=== PATIENT | female | born 1960 | race Caucasian/White ===

== ENCOUNTER 2024-01-09 19:42 | Inpatient (IN) | payer MEDICARE, MEDICAID, SELFPAY ==
[2024-01-09 19:43] VITALS: BP 123/75; PULSE 65; RESP 20; TEMP 36.6; O2SAT 95; BMI 53.1
--- NOTE | 2024-01-09 19:45 | XRR_ITS ---
PROCEDURE INFORMATION: Exam: XR Chest Exam date and time: 01/09/2024 8:00 PM Age: 63 years old Clinical indication: Shortness of breath TECHNIQUE: Imaging protocol: Radiologic exam of the chest. Views: 1 view. COMPARISON: No relevant prior studies available. FINDINGS: Lungs: Pulmonary venous hypertension without edema. Left lower lobe infiltrate. Pleural spaces: Unremarkable. No pleural effusion. No pneumothorax. Heart/Mediastinum: Unremarkable. No cardiomegaly. Bones/joints: Unremarkable. XR/XR chest 1V portable [id number] IMPRESSION: 1. Pulmonary venous hypertension without edema. 2. Left lower lobe infiltrate.
--- NOTE | 2024-01-09 19:46 | USR_ITS ---
PROCEDURE INFORMATION: Exam: US Duplex Lower Extremity Veins, Bilateral Exam date and time: 01/09/2024 8:42 PM Age: 63 years old Clinical indication: Leg, lower; Patient HX: Patient presents with pain and swelling bilateral lower extremities, which are covered with numerous, red, quarter-sized spots. No history of dvt per patient. ; Additional info: Bilateral lower extremity pain and swelling. TECHNIQUE: Imaging protocol: Real-time duplex ultrasound of the bilateral extremities with 2-D hernandes scale, color Doppler flow and spectral waveform analysis including responses to compression and other maneuvers (when performed) with image documentation. Complete exam focused on the lower extremity veins. COMPARISON: No relevant prior studies available. FINDINGS: Right deep veins: Unremarkable. The common femoral, femoral, proximal profunda femoral and popliteal veins are patent without thrombus. Normal Doppler waveforms. Normal compressibility and/or augmentation response. Left deep veins: Unremarkable. The common femoral, femoral, proximal profunda femoral and popliteal veins are patent without thrombus. Normal Doppler waveforms. Normal compressibility and/or augmentation response. Superficial veins: Greater saphenous veins at the saphenofemoral junctions are patent bilaterally without thrombus. Soft tissues: Unremarkable. US/[place] [id number] IMPRESSION: No evidence of deep vein thrombosis.
--- NOTE | 2024-01-09 19:46 | ECG_ITS ---
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 Measurements Intervals [place] Rate: 63 P: 49 IA: 175 QRS: 6 QRSD: 98 T: 46 QT: 429 QTc: 440 Interpretive Statements SINUS RHYTHM POSSIBLE ANTERIOR MYOCARDIAL INFARCTION , OF INDETERMINATE AGE [30 ms Q WAVE IN V3/V4, OR R < 0.2 mV IN V4] No previous ECG available for comparison Electronically Signed On 01-10-2024 15:45:14 CDT by Jose Castro M.D. [email or web address]
[2024-01-09] MEDS: FUROsemide 10 mg/mL SDV 10mL 80 MG IVP (19:58)
[2024-01-09 20:04] LABS: Basophils # 0.1 10^3/uL (0.0-0.1); Basophils % 0.9 %; Eosinophils # 0.2 10^3/uL (0.0-0.8); Eosinophils % 4.2 %; Lymphocytes # 1.4 10^3/uL (0.8-4.8); Lymphocytes % 26.1 %; Mean Corpuscular HGB Conc 31.4 g/dL (30-55); Mean Corpuscular Hemoglobin 30.9 pg (27-33); Mean Corpuscular Volume 98.4 fl (85-98); Mean Platelet Volume 9.6 fL (7.4-10.4); Monocytes # 0.8 10^3/uL (0.2-0.9); Monocytes % 13.8 %; Neutrophils # 2.99 10^3/uL (1.8-7.7); Neutrophils % 54.8 %; Nucleated Red Blood Cells % 0 %; Platelet Count 228 10^3/cmm (157-399); Red Blood Count 3.76 10^6/uL (3.85-5.65); Red Cell Distribution Width 15.1 % (12.1-15.1); White Blood Count 5.45 10^3/uL (3.29-11.43)
--- NOTE | 2024-01-09 20:07 | ED_ITS ---
HPI - Extremity Problem 2 General: Chief complaint: Extremity Problem,Nontraumatic Stated complaint: leg pain Time Seen by Provider: 01/09/24 19:44 History of Present Illness: 63-year-old female with a history of obe sity, chronic hypoxemic respiratory failure on 3 L nasal cannula at all times, pulmonary hypertension, possible congestive heart failure, hypothyroidism and hypertension who presents to the emergency room with worsening swelling. She says she has not been able to take her Lasix in several days because she has not really been able to get up and get around. She has had increased swelling in her legs. She called her doctor who told her to go to the emergency room because she might need an ultrasound to rule out DVT. She denies any orthopnea or worsening shortness of breath. No chest pain. No abdominal pain. No nausea or vomiting. No fevers. Review of Systems 2 Narrative: Constitutional symptoms: Negative except as documented in HPI. Skin symptoms: Negative except as documented in HPI. Eye symptoms: Negative except as documented in HPI. ENMT symptoms: Negative except as documented in HPI. Respiratory symptoms: Negative except as documented in HPI. Cardiovascular symptoms: Negative except as documented in HPI. Gastrointestinal symptoms: Negative except as documented in HPI. Genitourinary symptoms: Negative except as documented in HPI. Musculoskeletal symptoms: Negative except as documented in HPI. Neurologic symptoms: Negative except as documented in HPI. Psychiatric symptoms: Negative except as documented in HPI. Endocrine symptoms: Negative except as documented in HPI. Physical Exam 2 Narrative: EXAM NARRATIVE: General: Alert, no acute distress. Skin: Warm, dry. Head: Normocephalic, atraumatic. Neck: Supple, trachea midline. Eye: Extraocular movements are intact. Ears, nose, mouth and throat: mucosa moist. Cardiovascular: Regular, Normal peripheral perfusion. Respiratory: Lungs are clear to auscultation, respirations are non-labored, breath sounds are equal, Symmetrical chest wall expansion. Gastrointestinal: Soft, Nontender, Non distended, Normal bowel sounds. Musculoskeletal: Normal ROM, no deformity. Patient has seemed to have some swelling to her legs. She is also very obese it was difficult to examine. Neurological: Alert and oriented, No focal neurological deficit observed. Psychiatric: Cooperative, appropriate mood & affect. Course 2 Vital Signs: Vital signs: Vital Signs Temperature 97.9 F 01/09/24 19:43 Pulse Rate 60 01/09/24 22:11 Respiratory Rate 20 H 01/09/24 19:43 Blood Pressure 139/69 01/09/24 22:11 Pulse Oximetry 98 01/09/24 22:11 Oxygen Delivery Me thod Nasal Cannula 01/09/24 22:11 Oxygen Flow Rate 3 01/09/24 19:43 MDM - Extremity (Nontraumatic) Medical Decision Making Medical decision making: Differential diagnosis including but not limited to and based on the above HPI, review of systems and physical exam: We will order an ultrasound to rule out DVT. Basic lab work and proBNP are being ordered as well. Chest x-ray. Rule out congestive heart failure. Orders placed to evaluate differential diagnosis based on the above differential, HPI and physical exam Chest x-ray: Cardiomegaly, some pulmonary congestion that might indicate some early heart failure. No obvious focal infiltrates. This was reviewed and interpreted by myself the ER physician. EKG: Time 1948 rate 63. Normal sinus rhythm, No ST-T changes, no ectopy, normal [place] & QRS intervals, This was reviewed and interpreted by myself the ER physician at 1953 Ultrasound of the lower extremities bilaterally: This was read by the radiologist. There is no DVT or other abnormalities. Lab Review: Laboratory results were reviewed and interpreted by myself the emergency room physician. Patient has a white count of 5.45. Hemoglobin is 11.6. BUN and creatinine are 11 and 0.9. Potassium is a little bit low at 3.3. I reviewed the patient's medical record. Reexamination: Patient remained stable. I talked with her and her family. They feel that she is too weak to even get up to make a phone call to get help today. I think her multiple problems including anasarca, heart failure and a urinary tract infection should meet requirements for admission. They helped have physical therapy consult and possible assisted rehab. No increased work of breathing at this time. No altered mental status. I reevaluated her skin. She has breakdown under her breasts and in her groin area. She also has had circular lesions on her arms and legs for 5 to 6 months that she does not know what the cause is. Assessment and plan: Weakness/debility Urinary tract infection Congestive heart failure Anasarca Candidal skin infection/dermatitis under the breasts and in the groin. Hypokalemia Chronic hypoxemic respiratory failure -80 mg IV Lasix for anasarca/congestive heart failure. -40 mill equivalents p.o. potassium for hypokalemia that will be exacerbated with Lasix. -She has a skin rash/dermatitis that looks candidal to me. She has failed topical treatment. I am giving her 200 mg of IV fluconazole here in the emergency room. -Patient has extensive antibiotic allergies. She says she has tolerated Rocephin in the past. Already given her meropenem as she does have a Keflex allergy. -Patient remained stable on her 3 L nasal cannula. No increased oxygen requirements. -I discussed the patient with the hospitalist on-call who is admitting the patient. - Discussed findings and plan with patient. Answered any questions. - All laboratory values were reviewed and interpreted personally by myself, the ER physician - All imaging was reviewed and interpreted personally by myself, the ER physician. - Evaluation and treatment of this problem were appropriate in the emergency setting Lab Data 01/09/24 19:55 01/09/24 19:55 Radiology Impressions Chest X-Ray 01/09/24 19:45 IMPRESSION: 1. Pulmonary venous hypertension without edema. 2. Left lower lobe infiltrate. Venous Duplex 01/09/24 19:46 IMPRESSION: No evidence of deep vein thrombosis. Laboratory Results WBC 5.45 10^3/uL (3.29-11.43) 01/09/24 19:55 RBC 3.76 10^6/uL (3.85-5.65) L 01/09/24 19:55 Hgb 11.60 g/dL (11.27-16.99) 01/09/24 19:55 Hct 37.0 % (36-47) 01/09/24 19:55 MCV 98.4 fl (85-98) H 01/09/24 19:55 MCH 30.9 pg (27-33) 01/09/24 19:55 MCHC 31.4 g/dL (30-55) 01/09/24 19:55 RDW 15.1 % (12.1-15.1) 01/09/24 19:55 Plt Count 228 10^3/cmm (157-399) 01/09/24 19:55 MPV 9.6 fL (7.4-10.4) 01/09/24 19:55 Neut % (Auto) 54.8 % 01/09/24 19:55 Lymph % (Auto) 26.1 % 01/09/24 19:55 [place] % (Auto) 13.8 % 01/09/24 19:55 Eos % (Auto) 4.2 % 01/09/24 19:55 Baso % (Auto) 0.9 % 01/09/24 19:55 Neut # (Auto) 2.99 10^3/uL (1.8-7.7) 01/09/24 19:55 Lymph # (Auto) 1.4 10^3/uL (0.8-4.8) 01/09/24 19:55 [place] # (Auto) 0.8 10^3/uL (0.2-0.9) 01/09/24 19:55 Eos # (Auto) 0.2 10^3/uL (0.0-0.8) 01/09/24 19:55 Baso # (Auto) 0.1 10^3/uL (0.0-0.1) 01/09/24 19:55 Nucleated RBC % (auto) 0 % 01/09/24 19:55 Nucleated RBCs # 0.0 /100WBC 01/09/24 19:55 Sodium 141 mmol/L (136-145) 01/09/24 19:55 Potassium 3.3 mmol/L (3.5-5.1) L 01/09/24 19:55 Chloride 100 mmol/L (98-107) 01/09/24 19:55 Carbon Dioxide 35 mmol/L (22-29) H 01/09/24 19:55 Anion Gap 9.3 (5-19) 01/09/24 19:55 BUN 11 mg/dL (8-23) 01/09/24 19:55 Creatinine 0.9 mg/dL (0.5-0.9) 01/09/24 19:55 GFR Calculation 63.4 mL/min (90-130) L 01/09/24 19:55 Glucose 109 mg/dL (65-115) 01/09/24 19:55 Calculated Osmolality 292 mOsm/kg (285-295) 01/09/24 19:55 Lactic Acid 1.5 mmol/L (0.5-2.2) 01/09/24 19:55 Calcium 8.5 mg/dL (8.5-10.5) 01/09/24 19:55 Total Bilirubin 0.2 mg/dL (0.15-1.2) 01/09/24 19:55 AST 21 U/L (0-32) 01/09/24 19:55 ALT 10 U/L (0-33) 01/09/24 19:55 Alkaline Phosphatase 73 U/L (35-105) 01/09/24 19:55 Troponin T Baseline 69 ng/L (0-10) H 01/09/24 19:55 Troponin T 120 Minute 66.93 ng/L (0-10) H 01/09/24 21:32 Delta Troponin T -2.07 ABS# (0-10) L 01/09/24 21:32 C-Reactive Protein 18.0 mg/L (0.0-4.9) H 01/09/24 19:55 NT-Pro-B Natriuret Pep 297 pg/mL (0-125) H 01/09/24 19:55 Total Protein 6.2 g/dL (6.6-8.7) L 01/09/24 19:55 Albumin 3.2 g/dL (3.5-5.2) L 01/09/24 19:55 Globulin 3.0 g/dL (1.3-4.6) 01/09/24 19:55 Urine Color Yellow (Yellow) 01/09/24 20:23 Urine Appearance Cloudy (CLEAR) A 01/09/24 20:23 Urine pH 6.5 (5-7) 01/09/24 20:23 Ur Specific [place] 1.010 (1.005-1.030) 01/09/24 20:23 Urine Protein Neg (Negative) 01/09/24 20:23 Urine Glucose (UA) Norm (Normal) 01/09/24 20:23 Urine Ketones Negative (Negative) 01/09/24 20:23 Urine Blood 2+ (Negative) H 01/09/24 20:23 Urine Nitrate Positive (Negative) H 01/09/24 20:23 Urine Bilirubin Neg (Negative) 01/09/24 20:23 Urine Urobilinogen Neg mg/dL (Negative) 01/09/24 20:23 Ur Leukocyte Esterase 2+ (Negative) H 01/09/24 20:23 Urine RBC 5-10 /hpf (0-2) H 01/09/24 20:23 Urine WBC 25-40 /hpf (0-5) H 01/09/24 20:23 Ur Squamous Epith Cells 25-40 /hpf (0-5) H 01/09/24 20:23 Amorphous Sediment 1+ /hpf 01/09/24 20:23 Urine Bacteria 3+ /hpf (NONE) H 01/09/24 20:23 Urine Mucus 2+ /hpf 01/09/24 20:23 All radiology interpretation(s) finalized by discharge Discharge Plan Discharge Patient Disposition: Admitted As Inpatient Clinical Impression: Anasarca, Weakness, Dermatitis Congestive heart failure Qualifiers: Heart failure type: diastolic Heart failure chronicity: acute Qualified Code(s): I50.31 - Acute diastolic (congestive) heart failure Urinary tract infection Qualifiers: Urinary tract infection type: acute cystitis Hematuria presence: without hematuria Qualified Code(s): N30.00 - Acute cystitis without hematuria Condition: Stable Coding Level of Care Code ED Pool Technician for Trent Buenrostro
[2024-01-09 20:22] LABS: Lactic Sepsis W/Reflex 1.5 mmol/L (0.5-2.2)
[2024-01-09 20:23] LABS: Troponin(5th) Baseline 69 ng/L (0-10)
[2024-01-09 20:35] LABS: Alanine Aminotransferase 10 U/L (0-33); Albumin Level 3.2 g/dL (3.5-5.2); Alkaline Phosphatase 73 U/L (35-105); Anion Gap 9.3 (5-19); Aspartate Amino Transferase 21 U/L (0-32); Blood Urea Nitrogen 11 mg/dL (8-23); Calcium 8.5 mg/dL (8.5-10.5); Carbon Dioxide 35 mmol/L (22-29); Chloride 100 mmol/L (98-107); Glomerular Filtration Rate 63.4 mL/min (90-130); Glucose 109 mg/dL (65-115); NT Pro B Type Natriuretic Pept 297 pg/mL (0-125); Osmolality Calculated 292 mOsm/kg (285-295); Potassium 3.3 mmol/L (3.5-5.1); Sodium 141 mmol/L (136-145); Total Bilirubin 0.2 mg/dL (0.15-1.2); Total Protein 6.2 g/dL (6.6-8.7)
--- NOTE | 2024-01-09 20:38 | PC.NURSE ---
Verbal order given for Nany per Dr Aguilar.
[2024-01-09 20:47] LABS: Bilirubin Urine Neg (Negative); Blood Urine 2+ (Negative); Glucose Urine UA Norm (Normal); Ketones Urine Negative (Negative); Leukocyte Esterase Urine 2+ (Negative); Nitrate Urine Positive (Negative); Protein Urine Neg (Negative); Urine Appearance Cloudy (CLEAR); Urine Color Yellow (Yellow); Urobilinogen Urine Neg (Negative); pH Urine 6.5 (5-7)
[2024-01-09 20:48] LABS: Add Urine Culture? No; Amorphous Sediment Urine 1+ /hpf; Bacteria Urine 3+ /hpf; Mucus Urine 2+ /hpf; Squamous Epithelial Cell Urine 25-40 /hpf (0-5); WBC Urine 25-40 /hpf (0-5)
--- NOTE | 2024-01-09 21:46 | ECG_ITS ---
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 Measurements Intervals [place] Rate: 60 P: 27 NV: 180 QRS: -4 QRSD: 93 T: 34 QT: 423 QTc: 425 Interpretive Statements SINUS RHYTHM POSSIBLE ANTERIOR MYOCARDIAL INFARCTION , PROBABLY OLD [30 ms Q WAVE IN V3/V4, OR R < 0.2 mV IN V4] Compared to ECG 01/09/2024 19:49:19 No significant changes Electronically Signed On 01-10-2024 7:59:02 CDT by Aubrey Gao M.D. [email or web address]
[2024-01-09 21:54] LABS: Troponin 5 2HR 66.93 ng/L (0-10)
[2024-01-09 21:58] LABS: Troponin 5 2HR Delta -2.07 ABS# (0-10)
[2024-01-09] MEDS: meropenem 500 MG in sodium chloride 0.9% (plus) 50 ML 100 MG IV (22:07)
[2024-01-09 22:11] VITALS: BP 139/69; PULSE 60; O2SAT 98
--- NOTE | 2024-01-09 22:38 | PC.NURSE ---
Report was called to MARCEL Branham on Med-Surg. All questions and concerns were addressed at time of report.
[2024-01-09 22:50] LABS: Lactic Sepsis W/Reflex 0.9 mmol/L (0.5-2.2)
--- NOTE | 2024-01-09 22:57 | PC.NURSE ---
Patient was cleaned up with wipes and placed in fresh gown.
--- NOTE | 2024-01-09 23:25 | P.HP_ITS ---
Providers/Chief Complaint 2 Admitting Physician: Raymond Srivastava Primary Care Provider: Mamadou Johnson MD Chief Complaint: leg pain History of Present Illness 63-year-old lady with history of obesity, pulmonary hypertension, CHF, on chronic 3 L of oxygen by nasal cannula, SAVANA, on trilogy, HTN, hypothyroidism, has been progressively getting weaker, she lives at home with a special needs son who has autism and was able to help her occasionally to get into the wheelchair, but it seems she has lost the ability entirely to get up and/for transfer in the last week. She had been hospitalized since June and seems like due to difficulties with moving around has only had 3 showers. She has developed a severe rash under her breasts and in the groin with an extensive yeast infection for which she has been applying nystatin powder. She also has been having diffuse around red spots on her body for the last 5 months which her primary provider thought were related to psoriasis, although she has not been able to see dermatology due to being homebound. He came into the ER due to progressive inability to get up and get around, as well as around swollen area on the posterior left thigh. Due to being unable to get up and recheck her medications she also has not taken her Lasix and developed worsening edema. She has a pressure sore on her sacrum. Review of Systems 2 Const: Reports: other (Generally weak.); Denies: fever(s), chills, body aches or malaise ENMT: Denies: throat pain Card: Reports: swelling of feet/ankles; Denies: chest pain, pre-syncope or dyspnea on exertion Resp: Denies: dyspnea, productive cough, change in phlegm color or hemoptysis GI: Denies: abdominal pain, nausea, vomiting, diarrhea, constipation, hematochezia or melena : Denies: flank pain, urinary frequency or hematuria Musc: Denies: back pain, joint swelling or joint redness Skin/Breast: Reports: rash and other (Pressure sore reported by sister) Neuro: Denies: headache(s), dizziness or confusion Medications/Allergies Home Medications Medication Instructions Recorded Confirmed Last Taken Type [place] 3 2100 2,100 mg PO BID 01/10/24 01/10/24 Unknown History amlodipine 2.5 mg tablet 2.5 mg PO QMWF 01/10/24 01/10/24 Unknown History aspirin 81 mg capsule 81 mg PO DAILY 01/10/24 01/10/24 Unknown History buspirone 10 mg tablet 10 mg PO TID 01/10/24 01/10/24 Unknown History clonazepam 0.5 mg tablet 0.5 mg PO QNOON 01/10/24 01/10/24 Unknown History clonazepam 1 mg tablet 1 mg PO BEDTIME 01/10/24 01/10/24 Unknown History cyanocobalamin (vitamin B-12) 1,000 mcg PO DAILY 01/10/24 01/10/24 Unknown History 1,000 mcg tablet (Vitamin B-12) diphenhydramine HCl 25 mg tablet 25 mg PO TID PRN Itching 01/10/24 01/10/24 Unknown History ergocalciferol (vitamin D2) 1,250 See Rx Instructions .Route .COMPLEX 01/10/24 01/10/24 Unknown History mcg (50,000 unit) capsule (Vitamin D2) furosemide 40 mg tablet 40 mg PO BID 01/10/24 01/10/24 Unknown History furosemide 40 mg tablet See Rx Instructions .Route .COMPLEX 01/10/24 01/10/24 Unknown History levothyroxine 200 mcg tablet 200 mcg PO QAM 01/10/24 01/10/24 Unknown History metolazone 5 mg tablet 5 mg PO QMWF 01/10/24 01/10/24 Unknown History nabumetone 750 mg tablet 750 mg PO BID 01/10/24 01/10/24 Unknown History nystatin 100,000 unit/gram topical 1 applic topical DAILY 01/10/24 01/10/24 Unknown History cream pregabalin 75 mg capsule 75 mg PO TID 01/10/24 01/10/24 Unknown History sertraline 200 mg capsule 200 mg PO DAILY 01/10/24 01/10/24 Unknown History sildenafil (pulm.hypertension) 20 20 mg PO TID 01/10/24 01/10/24 Unknown History mg tablet terbinafine HCl 250 mg tablet 250 mg PO DAILY 01/10/24 01/10/24 Unknown History trazodone 100 mg tablet 100 mg PO BEDTIME 01/10/24 01/10/24 Unknown History Allergies Allergy/AdvReac Type Severity Reaction Status Date / Time fluconazole Allergy Unknown Unknown Unverified 01/09/24 23:39 amitriptyline Allergy Unknown Verified 01/09/24 21:24 atomoxetine Allergy Unknown Verified 01/09/24 21:24 cephalexin Allergy Unknown Verified 01/09/24 21:25 ciprofloxacin Allergy Unknown Verified 01/09/24 21:25 citalopram Allergy Unknown Verified 01/09/24 21:26 codeine Allergy Unknown Verified 01/09/24 21:26 gabapentin Allergy Unknown Verified 01/09/24 21:27 hyoscyamine Allergy Unknown Verified 01/09/24 21:27 levofloxacin Allergy Unknown Verified 01/09/24 21:27 nortriptyline Allergy Unknown Verified 01/09/24 21:28 Penicillins Allergy Unknown Verified 01/09/24 21:28 pentazocine Allergy Unknown Verified 01/09/24 21:29 pravastatin Allergy Unknown Verified 01/09/24 21:29 prednisone Allergy Unknown Verified 01/09/24 21:30 sulfamethoxazole Allergy Unknown Verified 01/09/24 21:30 trimethoprim Allergy Unknown Verified 01/09/24 21:30 PFSH Acute 2 PFSH: Medical History (Updated 01/10/24 @ 00:43 by Raymond Srivastava MD) Pressure ulcer Sleep apnea HTN (hypertension) Obesity Pulmonary hypertension Hypothyroidism Congestive heart failure Social History (Updated 01/10/24 @ 00:06 by Raymond Srivastava MD) Household members: children Vitals/I&O/Wt Last Vital Signs Temp 97.9 F 01/09/24 19:43 Pulse 60 01/09/24 22:11 Resp 20 H 01/09/24 19:43 BP 139/69 01/09/24 22:11 Pulse Ox 98 01/09/24 22:11 O2 Del Method Nasal Cannula 01/09/24 22:11 O2 Flow Rate 3 01/09/24 19:43 01/09/24 01/09/24 01/10/24 14:59 22:59 06:59 Intake Total 50 / 50 Balance 50 / 50 Weight last 48 hrs Weight 136.078 kg Physical Exam 2 Narrative: Accompanied by her sister. Const: COMMON NORMALS: patient oriented x3 and alert GENERAL APPEARANCE: c ooperative NUTRITIONAL APPEARANCE: obese morbidly obese O RIENTATION/CONSCIOUSNESS: Yes awake HENMT: COMMON NORMALS: oropharynx normal Neck/C-Spine: OTHER: Unable to visualize jugular vein due to obesity, short neck. Resp: COMMON NORMALS: normal respiratory effort and clear to auscultation bilaterally AUSCULTATION: clear to auscultation bilaterally Cardio: COMMON NORMALS: no JVD, regular rhythm, S1 normal heart sound present, S2 normal heart sound present and No murmurs present (Cardio) RHYTHM: regular rhythm HEART SOUNDS: S1 normal heart sound present and S2 normal heart sound present GI: COMMON NORMALS: Normal to inspection, nondistended, normoactive bowel sounds present, Soft to palpation and non-tender PALPATION: Yes Soft to palpation Extremity: COMMON NORMALS: no joint enlargement GENERAL: Yes edema (2+) Neuro: COMMON NORMALS: patient oriented x3 and moves all extremities S ENSORIUM/ORIENTATION: Yes alert Skin: NARRATIVE SKIN EXAM: Neumiller rash of various sizes across multiple body parts, torso, including chest, back, flanks, arms, legs. No blisters. OTHER: Extensive intertrigo under breasts, groin with raw erythematous skin. We could not get returned at the moment to look at the sacral ulcer. Urinary Catheter Management: Ayon: Cath Placed During This Visit: yes Urinary Catheter Date of Insertion: 01/09/24 Urinary Catheter Time of Insertion: 21:13 Data 01/09/24 19:55 01/09/24 19:55 Micro: Microbiology 01/09/24 22:15 Blood Culture - Preliminary Blood SPECIMEN COLLECTED 01/09/24 22:20 Blood Culture - Preliminary Blood SPECIMEN COLLECTED A&P Assessment and plan (1) Failure to thrive: Failure to thrive with inability to get up and get around anymore in the last week, has been weak prior to that, but was ambulating with help from her special needs son who has autism who had been assisting her with getting up from her walker, but she cannot do that anymore since last week. Appears possibly multifactorial loss of function including with urinary tract infection, congestive heart failure exacerbation, cellulitis, extensive yeast infection with severe intertrigo, possibly disseminated fungal infection. Treat underlying conditions as below. Has hypothyroidism as well, will check TSH. Check magnesium, Phos, CK. Reviewed vitals, CBC, CMP, CRP, troponin, UA, chest x-ray, venous duplex, EKG, on my interpretation without acute TN, some T wave flattening 3 and V2, reviewed ER note, discussed with ER provider. PT, OT consultation, case management consultation she will need rehabilitation versus long-term placement. (2) Congestive heart failure: Acute exacerbation of congestive heart failure, type unknown, possibly diastolic. Has not been able to take her diuretics. With lower extremity edema, loss of ability to walk. COPD milligram leg 6, continue with IV Lasix currently, monitor for risk of electrolyte abnormality, check magnesium, received potassium replacement, recheck. Monitor DANIELLA. Monitor for risk of HANNAH. Recheck chemistry. Qualifiers: Heart failure chronicity: acute Heart failure type: diastolic Qualified Code(s): I50.31 - Acute diastolic (congestive) heart failure (3) Urinary tract infection: Treat suspected UTI with meropenem, she has allergy to quinolones, penicillins, cephalosporins. Monitor for risk of seizure with meropenem. Follow-up urine culture. Qualifiers: Hematuria presence: without hematuria Urinary tract infection type: a cute cystitis Qualified Code(s): N30.00 - Acute cystitis without hematuria (4) Cellulitis: She has extensive intertrigo under her breasts, groin with yeast infection possible disseminated fungal infection, with superimposed cellulitis, but also has an additional area of cellulitis on posterior left thigh. Meropenem, linezolid. Monitor for risk of adrenal cytosis with linezolid. Reassess. (5) Rash: Has a nummular rash on her back, trunk, arms and legs. Thought to be psoriasis by her primary provider although has not been formally diagnosed. Has not been able to see a mechanic chief due to being homebound. Unclear etiology of the rash. Possible nummular eczema? Versus as thoughts, psoriasis, versus possibly vasculitis. Please contact surgery during the day for biopsy. Referred for follow-up with dermatology. (6) Intertrigo: Severe extensive intertrigo in skin folds, under breast, groin, possible disseminated fungal infection. Severe erythema. Stop nystatin powder, use cream, but with extensive illness possible disseminated infection discussed with her requiring systemic antifungal. Start micafungin. She states that she has had an allergy to Diflucan in the past. (7) Unable to ambulate: As above. (8) Lack of social support: Lives with a special needs 25-year-old son with autism. He is unable to help her in any substantial way beyond trying to help her to her walker at times. (9) Pressure ulcer: Sacral pressure ulcer. Wound care added. Reposition frequently. Mobilization with PT as above. Add protein supplements to diet. (10) Lung infiltrate: Unclear cause of left lower lung infiltrate on chest x-ray as discussed with her and her sister. She has no respiratory symptoms. Is covered for possible pneumonia with medication as above. Will need follow-up with primary provider to confirm resolution. Plan Pulmonary hypertension: Chronically on 3 L nasal cannula oxygen HTN Hypothyroidism SAVANA on trilogy at home: Continue Morbid obesity: Follow-up with primary provider for options for weight loss. Attestations 2 Medical Necessity Statement*: Admission of over 2 midnights anticipated for assessment of management of failure to thrive, decompensated CHF, UTI, cellulitis, extensive intertrigo possible disseminated fungal infection, and lady with lack of social support, pressure ulcer, morbid obesity. and High MDM includes amount and/or complexity of data reviewed/ordered [ previous or external records, resulted lab(s)/test(s), ordered lab(s)/test(s), independent historian, independent test interpretation and other healthcare professional discussion] and described risk of complication, morbidity or mortality of management as documented Diagnoses Failure to thrive Congestive heart failure I50.31 Heart failure chronicity: acute Heart failure type: diastolic Urinary tract infection N30.00 Hematuria presence: without hematuria Urinary tract infection type: acute cystitis Cellulitis L03.90 Rash R21 Intertrigo L30.4 Unable to ambulate R26.2 Lack of social support Z65.8 Pressure ulcer L89.90 Lung infiltrate R91.8
[2024-01-09] MEDS: potassium chloride ER 20 mEq Tablet 40 MEQ PO (23:33)
[2024-01-10 00:13] VITALS: BMI 52.9
[2024-01-10 00:17] VITALS: BP 134/79; PULSE 64; RESP 17; TEMP 36.9; O2SAT 99
--- NOTE | 2024-01-10 01:46 | ECG_ITS ---
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 Measurements Intervals [place] Rate: 66 P: 32 NC: 173 QRS: 3 QRSD: 102 T: 39 QT: 445 QTc: 469 Interpretive Statements SINUS RHYTHM POSSIBLE ANTERIOR MYOCARDIAL INFARCTION , PROBABLY OLD [30 ms Q WAVE IN V3/V4, OR R < 0.2 mV IN V4] Compared to ECG 01/09/2024 22:02:16 No significant changes Electronically Signed On 01-10-2024 15:53:28 CDT by Jose Castro M.D. [id number]
[2024-01-10] MEDS: enoxaparin 40 mg/0.4 mL Syringe SUBCUT ×2 (02:02→23:59)
[2024-01-10] MEDS: linezolid premix 600 MG/300 ML PREMIX 300 MG IV ×3 (02:02→23:58)
[2024-01-10] MEDS: nystatin cream 30 gm 1 APPLIC TOPICAL ×2 (02:48→09:01)
[2024-01-10] MEDS: trazodone 100 mg Tablet PO ×2 (02:49→20:28)
[2024-01-10] MEDS: CLONazepam 1 mg Tablet 0.5 MG PO ×2 (02:49→20:28)
--- NOTE | 2024-01-10 03:28 | PC.RESP ---
Patient EKG @1946 was canceled as duplicate order Per verbal order from Dr. Aguilar in ER.
[2024-01-10 04:00] VITALS: BP 119/70; PULSE 59; RESP 18; TEMP 36.4
[2024-01-10] MEDS: meropenem 500 MG in sodium chloride 0.9% (plus) 50 ML 100 MG IV ×3 (06:16→23:24)
[2024-01-10] MEDS: levothyroxine 200 mcg Tablet PO (06:16)
[2024-01-10 08:10] VITALS: BP 104/61; PULSE 59; RESP 16; TEMP 36.8; O2SAT 96
[2024-01-10] MEDS: SILDENAFIL 20 MG 20 EACH PO ×2 (08:29→15:17)
[2024-01-10] MEDS: sertraline 100 mg Tablet 200 MG PO (09:01)
[2024-01-10] MEDS: BuSPIRONE 10 mg Tablet PO ×3 (09:01→20:29)
[2024-01-10] MEDS: aspirin 81 mg EC Tablet PO (09:01)
[2024-01-10] MEDS: metOLazone 5 MG Tablet PO ×2 (09:01→15:18)
[2024-01-10] MEDS: pregabalin 75 mg Capsule PO ×3 (09:01→20:27)
[2024-01-10] MEDS: cyanocobalamin 1,000 mcg Tablet 1000 MCG PO (09:01)
[2024-01-10] MEDS: micafungin 100 MG in sodium chloride 0.9% (plus) 100 ML IV (09:02)
--- NOTE | 2024-01-10 11:24 | USCV_ITS ---
Essence Geller Age: 63 Gender: F : 1960 Exam Date: 01/10/2024 15:48 Ordering Phys: Jake Leyva MD Technologist: Exam Location: [facility] [place] Indication: chf BP: / HR: 78 Rhythm: Sinus Technical Quality: Adequate MEASUREMENTS (Male / Female) Normal Values 2D ECHO LV Diastolic Diameter PLAX 4.6 cm 4.2 - 5.9 / 3.9 - 5.3 cm IVS Diastolic Thickness 1.7 cm 0.6 - 1.0 / 0.6 - 0.9 cm IVS Systolic Thickness 2.0 cm LVPW Diastolic Thickness 1.8 cm 0.6 - 1.0 / 0.6 - 0.9 cm LVPW Systolic Thickness 1.9 cm LVOT Diameter 3.5 cm LV Ejection Fraction 2D Teich 60.9 % LV Ejection Fraction MOD 2C 75.4 % LV Ejection Fraction 2C AL 75.0 % LA Diameter 3.7 cm RA Systolic Volume 4C AL 63.9 ml RA Systolic Volume 4C MOD 63.0 ml Aorta at Sinotubular Diameter 2.6 cm M-MODE LA Ao Ratio MM 1.6 AV Cusp Separation MM 2.0 cm DOPPLER AV Peak Velocity 116.0 cm/s LVOT Peak Velocity 70.0 cm/s AV Area Cont Eq vti 6.5 cm squared AV Area Cont Eq pk 5.8 cm squared MV Peak Velocity 127.0 cm/s MV Area PHT 2.4 cm squared Mitral E to A Ratio 1.3 TR Peak Velocity 268.0 cm/s TR Peak Gradient 28.7 mmHg TV Peak E Velocity 78.0 cm/s Right Atrial Pressure 3.0 mmHg Pulmonary Artery Systolic Pressu 31.7 mmHg PV Peak Velocity 133.0 cm/s FINDINGS Left Ventricle Technically limited quality echocardiogram because of poor ultrasonic windows. left ventricle is normal in size. LV systolic function is normal with EF of 55 to 60%. No regional wall motion abnormalities are seen. Right Ventricle Grossly normal Right Atrium Normal in size Left Atrium Normal in size Mitral Valve Not well visualized Aortic Valve Grossly normal Tricuspid Valve Mild tricuspid regurgitation. Pulmonary artery systolic pressure is normal. Pulmonic Valve Not well visualized Pericardium Small pericardial effusion. Aorta Normal in size IVC Not well visualized CONCLUSIONS Technically limited quality echocardiogram because of poor ultrasonic windows. LV systolic function is normal with EF of 55 to 60%. Mild tricuspid regurgitation Valvular structures are not well-visualized. Small pericardial effusion. No comparison studies are available. Aubrey Gao MD (Electronically Signed) Final Date: 11 Jan 2024 08:01 S
[2024-01-10] MEDS: potassium chloride ER 20 mEq Tablet 40 MEQ PO (11:45)
[2024-01-10] MEDS: CLONazepam 0.5 mg Tablet 0.25 MG PO (11:45)
--- NOTE | 2024-01-10 11:52 | P.PN_ITS ---
Subjective 2 Subjective: Admitted overnight. Seen with family at bedside. Patient lying comfortably in bed. Denies any nausea, vomiting, headache. Patient states she is more in so bedbound since June. She usually just gets out very briefly from bed to chair and chair to commode and then back to bed. Patient has been in shower only 3 times since June but has had bad thoughts. States she has a history of Sjogren syndrome. Denies any new medications. States rash has been getting worse since June. Rashes slightly tender with mild itching. Denies any bleeding or discharge. His family history of SLE. Vitals/I&O/Wt Last Vital Signs Temp 98.2 F 01/10/24 08:10 Pulse 59 L 01/10/24 08:10 Resp 16 01/10/24 08:10 BP 104/61 01/10/24 08:10 Pulse Ox 96 01/10/24 08:10 O2 Del Method CPAP 01/10/24 08:10 O2 Flow Rate 2 01/10/24 04:00 01/09/24 01/10/24 01/10/24 22:59 06:59 14:59 Intake Total 710 / 710 630 / 630 Output Total 2049 Balance -1340 / -1340 630 / 630 Weight last 48 hrs Weight 141.067 kg Weight 141.067 kg Weight 135.715 kg Weight 136.078 kg Physical Exam 2 Narrative: Accompanied by her sister. Const: COMMON NORMALS: patient oriented x3 and alert GENERAL APPEARANCE: c ooperative NUTRITIONAL APPEARANCE: obese morbidly obese O RIENTATION/CONSCIOUSNESS: Yes awake HENMT: COMMON NORMALS: oropharynx normal Neck/C-Spine: COMMON NORMALS: no JVD OTHER: Unable to visualize jugular vein due to obesity, short neck. Resp: COMMON NORMALS: normal respiratory effort and clear to auscultation bilaterally AUSCULTATION: clear to auscultation bilaterally Cardio: COMMON NORMALS: no JVD, regular rhythm, S1 normal heart sound present, S2 normal heart sound present and No murmurs present (Cardio) RHYTHM: regular rhythm HEART SOUNDS: S1 normal heart sound present and S2 normal heart sound present GI: COMMON NORMALS: Normal to inspection, nondistended, normoactive bowel sounds present, Soft to palpation and non-tender PALPATION: Yes Soft to palpation Extremity: COMMON NORMALS: no joint enlargement and no pedal edema GENERAL: Yes edema (2+) Neuro: COMMON NORMALS: patient oriented x3 and moves all extremities S ENSORIUM/ORIENTATION: Yes alert Skin: COMMON NORMALS: no rashes or lesions noted NARRATIVE SKIN EXAM: Neumiller rash of various sizes across multiple body parts, torso, including chest, back, flanks, arms, legs. No blisters. GENERAL SKIN EXAM: no rashes or lesions noted OTHER: Urinary Catheter Management: Ayon: Cath Placed During This Visit: yes Reason for Continuing Indwelling Catheter: Accurate Measurement of Urinary Output in Critically Ill Patients Urinary Catheter Date of Insertion: 01/09/24 Urinary Catheter Time of Insertion: 21:13 Data 01/10/24 12:12 01/10/24 12:12 Micro: Microbiology 01/09/24 22:15 Blood Culture - Preliminary Blood SPECIMEN COLLECTED 01/09/24 22:20 Blood Culture - Preliminary Blood SPECIMEN COLLECTED A&P Assessment and plan (1) Rash: Will contact surgical team for biopsy. Discussed in detail with Dr. Anat Modi/mask layout designer. She would see the patient as an outpatient. Differential diagnosis for now would be psoriasis versus autoimmune disorder like discoid lupus versus Sweet syndrome. Infective etiology less likely for now. Check ESR, CRP, ROULA, HIV, hepatitis panel, peripheral smear to rule out AML, RPR. If needed patient is agreeable for a trial of steroids. (2) Intertrigo: Severe extensive intertrigo in skin folds, under breast, groin, could be in setting of fungal infection. As per dermatology team cannot rule out a form of psoriasis. Will request a biopsy as well. Currently on micafungin. Possible allergic Diflucan. Patient does not remember. She is agreeable for a trial of Diflucan. Diflucan 100 mg IV daily. Stop micafungin. Will monitor for any allergic reaction. Clotrimazole with betamethasone ointment 3 times a day. (3) Cellulitis: Possible cellulitis at the medial left thigh region near the popliteal fossa. Mild tenderness. Check MRSA swab. Continue with IV meropenem and linezolid started overnight. (4) Failure to thrive: Failure to thrive with inability to get up and get around anymore in the last week, has been weak prior to that, but was ambulating with help from her special needs son who has autism who had been assisting her with getting up from her walker, but she cannot do that anymore since last week. Unsure of the cause. Could be in setting of mild UTI. Patient does have mild hypokalemia. Continue IV antibiotics as above for UTI. Appreciate TSH, vitamin B12 levels. Check free T3 and free T4. A1c found to be 5.3. Vitamin B12 levels normal, folate levels elevated Check urine drug screen. Follow-up blood cultures Physical therapy. Discussed in detail with the patient for possibility of staying out of bed to chair for as long as possible. She is agreeable. Occupational Therapy evaluation. Given extensive physical deconditioning patient would benefit from continued physical therapy as an outpatient at [facility]. She is agreeable. (5) Congestive heart failure: No past known medical history of congestive heart failure. Cannot rule out obstructive sleep apnea leading to diastolic heart failure. Continue with home Trelegy. Continue with IV Lasix for now. Ayon catheterization. Check echocardiogram. Strict input output charting, daily weights. Monitor renal functions and electrolytes. Qualifiers: Heart failure chronicity: acute Heart failure type: diastolic Qualified Code(s): I50.31 - Acute diastolic (congestive) heart failure (6) Urinary tract infection: Treat suspected UTI with meropenem, she has allergy to quinolones, penicillins, cephalosporins. Monitor for risk of seizure with meropenem. Follow-up urine culture. Qualifiers: Hematuria presence: without hematuria Urinary tract infection type: a cute cystitis Qualified Code(s): N30.00 - Acute cystitis without hematuria (7) Unable to ambulate: As above. (8) Lack of social support: Lives with a special needs 25-year-old son with autism. He is unable to help her in any substantial way beyond trying to help her to her walker at times. (9) Pressure ulcer: Sacral pressure ulcer. Wound care added. Reposition frequently. Mobilization with PT as above. Add protein supplements to diet. Plan Pulmonary hypertension: Chronically on 3 L nasal cannula oxygen. Continue with home dose of sildenafil. HTN Hypothyroidism SAVANA on trilogy at home: Continue Morbid obesity: Follow-up with primary provider for options for weight loss. Full code Cardiac diet Famotidine for PUD prophylaxis Lovenox for DVT prophylaxis Attestations 2 Medical Necessity Statement*: Requires further hospitalization for management of significant rash and vertigo requiring further investigation, failure to thrive, congestive heart failure of unknown type in a patient with significant COPD and obstructive sleep apnea, morbid obesity while safe discharge planning is sought Diagnoses Rash R21 Intertrigo L30.4 Cellulitis L03.90 Failure to thrive Congestive heart failure I50.31 Heart failure chronicity: acute Heart failure type: diastolic Urinary tract infection N30.00 Hematuria presence: without hematuria Urinary tract infection type: acute cystitis Unable to ambulate R26.2 Lack of social support Z65.8 Pressure ulcer L89.90
[2024-01-10 12:28] VITALS: BP 116/65; PULSE 69; RESP 18; TEMP 36.4; O2SAT 94
[2024-01-10 12:29] LABS: Basophils % 0.7 %; Eosinophils # 0.3 10^3/uL (0.0-0.8); Eosinophils % 4.7 %; Hematocrit 35.5 % (36-47); Lymphocytes # 1.3 10^3/uL (0.8-4.8); Lymphocytes % 23.2 %; Mean Corpuscular HGB Conc 32.1 g/dL (30-55); Mean Corpuscular Hemoglobin 30.8 pg (27-33); Mean Corpuscular Volume 95.9 fl (85-98); Mean Platelet Volume 10.7 fL (7.4-10.4); Monocytes # 0.9 10^3/uL (0.2-0.9); Monocytes % 16.1 %; Neutrophils # 3.03 10^3/uL (1.8-7.7); Neutrophils % 54.9 %; Nucleated Red Blood Cells % 0 %; Platelet Count 185 10^3/cmm (157-399); White Blood Count 5.52 10^3/uL (3.29-11.43)
[2024-01-10 12:59] LABS: HIV 1 & 2 Antibody Non-Reactive (Non-Reactiv); HIV 1 & 2 Antigen Non-Reactive (Non-Reactiv)
[2024-01-10 13:05] LABS: Procalcitonin 0.08 ng/mL (0-0.5)
[2024-01-10 13:10] LABS: D Dimer 0.76 ug/mLFEU (0-0.59); Hepatitis A Antibody IgM Non-Reactive (Nonreactive); Hepatitis B Core AB, Total Non-Reactive (Nonreactive); Hepatitis B Surface AB < 3.5 (11.5-1000); Hepatitis B Surface Antigen Non-Reactive (Nonreactive); Hepatitis C Virus Antibody Non-Reactive (Nonreactive)
[2024-01-10 13:17] LABS: Alanine Aminotransferase 10 U/L (0-33); Albumin Level 3.2 g/dL (3.5-5.2); Alkaline Phosphatase 76 U/L (35-105); Anion Gap 13.4 (5-19); Aspartate Amino Transferase 23 U/L (0-32); Blood Urea Nitrogen 12 mg/dL (8-23); Calcium 9.3 mg/dL (8.5-10.5); Carbon Dioxide 34 mmol/L (22-29); Chloride 94 mmol/L (98-107); Creatinine Clr Calc Pharmacy 73.5552; Globulin 3.8 g/dL (1.3-4.6); Glomerular Filtration Rate 50.3 mL/min (90-130); Glucose 119 mg/dL (65-115); Osmolality Calculated 287 mOsm/kg (285-295); Potassium 3.4 mmol/L (3.5-5.1); Sodium 138 mmol/L (136-145); Total Bilirubin 0.3 mg/dL (0.15-1.2)
[2024-01-10 13:29] LABS: Slide Review Slide Review Perform
[2024-01-10 13:36] LABS: Estmated Average Glucose 105; Hemoglobin A1C 5.3 % (4.0-6.0)
[2024-01-10 13:44] LABS: Iron 53 ug/dL (37-145); Percent Saturation 17.6 % (20-50); Total Iron Binding Capacity 301 mcg/dl; Unsaturated Iron Binding 248 ug/dL (112-347)
[2024-01-10 13:47] LABS: Erythrocyte Sedimentation Rate 78 mm/hr (0-15)
[2024-01-10 13:48] LABS: LAB Peripheral Smear Sent for Review
[2024-01-10 13:58] LABS: Vitamin B12 1929 pg/mL (232-1245)
[2024-01-10] MEDS: fluconazole premix 100 MG in empty flexible container 1 EACH 50 MG IV (13:58)
[2024-01-10 14:02] LABS: Amphetamines Screen Urine Negative (Negative); Barbiturates Screen Urine Negative (Negative); Benzodiazepines Screen Urine Negative (Negative); Cocaine Screen Urine Negative (Negative); Opiate Screen Urine Positive (Negative); PCP Screen Urine Negative (Negative); THC Screen Urine Negative (Negative)
[2024-01-10] MEDS: clotrimazole-betamethasone cream 15gm 1 APPLIC TOPICAL ×2 (15:17→20:30)
[2024-01-10] MEDS: TRAMadol 50 mg Tablet PO ×2 (15:17→20:28)
[2024-01-10 15:36] LABS: Free T4 Free Thyroxine 1.51 ng/dL (0.82-1.77); T3 Free 1.5 PG/ML (2.0-4.4)
[2024-01-10 17:03] VITALS: BP 115/57; PULSE 68; RESP 18; TEMP 36.8; O2SAT 95
[2024-01-10] MEDS: perflutren protein-a microsphr 0.22 mg/mL SDV 3 mL IV (17:23)
[2024-01-10] MEDS: artificial tears Op Soln 15 mL Btl 1 DROP EYE-BOTH (19:13)
[2024-01-10 19:54] VITALS: BP 117/74; PULSE 67; RESP 18; TEMP 37.2; O2SAT 96
[2024-01-11] VITALS (7 sets, daily range): BP systolic 109–164; BP diastolic 57–69; PULSE 59–67; RESP 15–20; TEMP 36.4–36.7; O2SAT 93–99
[2024-01-11] MEDS: FUROsemide 10 mg/mL SDV 4mL 40 MG IVP ×2 (03:51→15:47)
[2024-01-11 05:39] LABS: Basophils # 0.1 10^3/uL (0.0-0.1); Basophils % 0.9 %; Eosinophils # 0.3 10^3/uL (0.0-0.8); Eosinophils % 6.1 %; Hematocrit 37.1 % (36-47); Lymphocytes # 1.4 10^3/uL (0.8-4.8); Lymphocytes % 24.6 %; Mean Corpuscular HGB Conc 31.8 g/dL (30-55); Mean Corpuscular Hemoglobin 30.8 pg (27-33); Mean Corpuscular Volume 96.9 fl (85-98); Mean Platelet Volume 9.8 fL (7.4-10.4); Monocytes # 0.7 10^3/uL (0.2-0.9); Monocytes % 13.4 %; Neutrophils # 3.03 10^3/uL (1.8-7.7); Neutrophils % 54.8 %; Nucleated Red Blood Cells % 0 %; Platelet Count 243 10^3/cmm (157-399); Red Blood Count 3.83 10^6/uL (3.85-5.65); Red Cell Distribution Width 15.2 % (12.1-15.1); White Blood Count 5.53 10^3/uL (3.29-11.43)
[2024-01-11 06:00] LABS: Magnesium 2.3 mg/dL (1.7-2.3)
[2024-01-11 06:17] LABS: Folate Level 3.1 ng/mL (4.8-37.3)
[2024-01-11 06:41] LABS: Chol HDL Ratio 3.95 mg/dL (0.0-4.40); Cholesterol 225 mg/dL (0-200); HDL Cholesterol 57 mg/dL (60-100); LDL Cholesterol Calculated 144 mg/dL (50-129); Phosphorus 3.3 mg/dL (2.5-4.5); Triglycerides 120 mg/dL (0-150); VLDL Cholestrol Calculation 24 mg/dL (0-30)
[2024-01-11] MEDS: levothyroxine 200 mcg Tablet PO (06:45)
[2024-01-11] MEDS: meropenem 500 MG in sodium chloride 0.9% (plus) 50 ML 100 MG IV ×3 (06:45→23:06)
[2024-01-11] MEDS: artificial tears Op Soln 15 mL Btl 1 DROP EYE-BOTH (06:45)
--- NOTE | 2024-01-11 08:09 | P.CONIM_ITS ---
Providers/Reason For Consult 2 Consulting Physician/Specialty*: Dr. Rodolfo Vences, DO/General surgery Reason for Consult*: Skin lesions/rash Attending Physician: Jake Leyva MD Primary Care Provider: Mamadou Johnson MD History of Present Illness History of Present Illness Essence Geller is a 63 year old female with a history of obesity, pulmonary hypertension, CHF, on chronic 3 L of oxygen by nasal cannula, SAVANA, on trilogy, HTN, and hypothyroidism is currently in the hospital with 2 different rashes across to her body. She has discoid lesions diffusely as well as more diffuse rashes underneath her breasts, on her abdomen and in her bilateral groins. She reports that these have been present for about 5 months. They can cause pain and itching. The pain is dull and constant. Scratch can make the pain worse. Nothing makes pain better. The pain does not radiate. She has been hospitalized since June and is currently having problems even transferring out of bed. General surgery was consulted for skin biopsies. Review of Systems 2 General: Reports: 10 or more systems reviewed and unremarkable except in HPI and below Medications/Allergies Home Medications Medication Instructions Recorded Confirmed Last Taken Type [place] 3 2100 2,100 mg PO BID 01/10/24 01/10/24 Unknown History amlodipine 2.5 mg tablet 2.5 mg PO QMWF 01/10/24 01/10/24 Unknown History aspirin 81 mg capsule 81 mg PO DAILY 01/10/24 01/10/24 Unknown History buspirone 10 mg tablet 10 mg PO TID 01/10/24 01/10/24 Unknown History clonazepam 0.5 mg tablet 0.25 mg PO QNOON 01/10/24 01/10/24 Unknown History clonazepam 1 mg tablet 0.5 mg PO BEDTIME 01/10/24 01/10/24 Unknown History cyanocobalamin (vitamin B-12) 1,000 mcg PO DAILY 01/10/24 01/10/24 Unknown History 1,000 mcg tablet (Vitamin B-12) diphenhydramine HCl 25 mg tablet 25 mg PO TID PRN Itching 01/10/24 01/10/24 Unknown History ergocalciferol (vitamin D2) 1,250 See Rx Instructions .Route .COMPLEX 01/10/24 01/10/24 Unknown History mcg (50,000 unit) capsule (Vitamin D2) furosemide 40 mg tablet 40 mg PO BID 01/10/24 01/10/24 Unknown History furosemide 40 mg tablet See Rx Instructions .Route .COMPLEX 01/10/24 01/10/24 Unknown History levothyroxine 200 mcg tablet 200 mcg PO QAM 01/10/24 01/10/24 Unknown History metolazone 5 mg tablet 5 mg PO QMWF 01/10/24 01/10/24 Unknown History nabumetone 750 mg tablet 750 mg PO BID 01/10/24 01/10/24 Unknown History nystatin 100,000 unit/gram topical 1 applic topical DAILY 01/10/24 01/10/24 Unknown History cream pregabalin 75 mg capsule 75 mg PO TID 01/10/24 01/10/24 Unknown History sertraline 200 mg capsule 200 mg PO DAILY 01/10/24 01/10/24 Unknown History sildenafil (pulm.hypertension) 20 20 mg PO TID 01/10/24 01/10/24 Unknown History mg tablet terbinafine HCl 250 mg tablet 250 mg PO DAILY 01/10/24 01/10/24 Unknown History trazodone 100 mg tablet 100 mg PO BEDTIME 01/10/24 01/10/24 Unknown History Allergies Allergy/AdvReac Type Severity Reaction Status Date / Time codeine Allergy Severe ALGY-Swell Verified 01/10/24 15:33 Lip/Tongue/Throat citalopram Allergy Intermediate ADR-Confusi Verified 01/10/24 15:33 on prednisone Allergy Intermediate ADR/ALGY-Pa Verified 01/10/24 15:33 lpitations sulfamethoxazole Allergy Intermediate ALGY-Rash Verified 01/10/24 15:33 trimethoprim Allergy Intermediate ALGY-Rash Verified 01/10/24 15:33 amitriptyline Allergy Mild ADR-Drowsy Verified 01/10/24 15:33 atomoxetine Allergy Unknown Unknown Verified 01/10/24 15:33 ciprofloxacin Allergy Unknown Unknown Verified 01/10/24 15:33 hyoscyamine Allergy Unknown Unknown Verified 01/10/24 15:33 levofloxacin Allergy Unknown Unknown Verified 01/10/24 15:33 nortriptyline Allergy Unknown Unknown Verified 01/10/24 15:33 Penicillins Allergy Unknown Unknown Verified 01/10/24 15:33 pentazocine Allergy Unknown Unknown Verified 01/10/24 15:33 pravastatin Allergy Unknown Unknown Verified 01/10/24 15:33 cephalexin Allergy ADR-Itching Verified 01/10/24 15:33 fluoxetine Allergy ADR-Numbnes Verified 01/10/24 15:33 s gabapentin Allergy ADR-Drowsy Verified 01/10/24 15:33 Current Medications Generic Name Dose Route Start Last Admin Trade Name Freq PRN Reason Stop Dose Admin Artificial Tears 1 drop 01/10/24 18:12 01/11/24 06:45 Artificial Tears Op Soln 15 Ml Btl EYE-BOTH 1 drop Q4H PRN Administration DRY EYE(S) Aspirin 81 mg 01/10/24 09:00 01/10/24 09:01 Aspirin 81 Mg Ec Tablet PO 81 mg DAILY MIHIR Administration Betamethasone/Clotrimazole 1 applic 01/10/24 15:00 01/10/24 20:30 Clotrimazole-Betamethasone Cream 15gm TOPICAL 1 applic TID MIHIR Administration Buspirone HCl 10 mg 01/10/24 09:00 01/10/24 20:29 Buspirone 10 Mg Tablet PO 10 mg TID MIHIR Administration Clonazepam 0.25 mg 01/10/24 12:00 01/10/24 11:45 Clonazepam 0.5 Mg Tablet PO 0.25 mg QNOON MIHIR Administration Clonazepam 0.5 mg 01/10/24 02:39 01/10/24 20:28 Clonazepam 1 Mg Tablet PO 0.5 mg BEDTIME MIHIR Administration Cyanocobalamin 1,000 mcg 01/10/24 09:00 01/10/24 09:01 Cyanocobalamin 1,000 Mcg Tablet PO 1,000 mcg DAILY MIHIR Administration Enoxaparin Sodium 40 mg 01/10/24 00:17 01/10/24 23:59 Enoxaparin 40 Mg/0.4 Ml Syringe SUBCUT 40 mg Q24H MIHIR Administration Furosemide 40 mg 01/11/24 04:00 01/11/24 03:51 Furosemide 10 Mg/Ml Sdv 4ml IVP 40 mg BID@0400,1600 MIHIR Administration Meropenem 500 mg/ Sodium 50 mls @ 100 mls/hr 01/10/24 06:00 01/11/24 06:45 Chloride IV 100 mls/hr Q8H MIHIR Administration Protocol Linezolid 600 mg in 300 mls @ 300 mls/hr 01/10/24 00:17 01/11/24 01:11 Zyvox Premix IV Infused Q12H MIHIR Infusion Protocol Fluconazole 100 mg/ N/A 50 mls @ 50 mls/hr 01/10/24 12:15 01/10/24 15:36 IV Infused Q24H MIHIR Infusion Levothyroxine Sodium 200 mcg 01/10/24 06:00 01/11/24 06:45 Levothyroxine 200 Mcg Tablet PO 200 mcg QAM MIHIR Administration Metolazone 5 mg 01/10/24 14:45 01/10/24 15:18 Metolazone 5 Mg Tablet PO 5 mg DAILY MIHIR Administration Non-Formulary Medication 20 mg 01/10/24 09:00 01/10/24 15:17 Sildenafil (Pulm.Hypertension) PO 20 mg TID MIHIR Administration Pregabalin 75 mg 01/10/24 09:00 01/10/24 20:27 Pregabalin 75 Mg Capsule PO 75 mg TID MIHIR Administration Sertraline HCl 200 mg 01/10/24 09:00 01/10/24 09:01 Sertraline 100 Mg Tablet PO 200 mg DAILY MIHIR Administration Tramadol HCl 50 mg 01/10/24 14:57 01/10/24 20:28 Tramadol 50 Mg Tablet PO 50 mg Q4H PRN Administration MODERATE PAIN Trazodone HCl 100 mg 01/10/24 02:40 01/10/24 20:28 Trazodone 100 Mg Tablet PO 100 mg BEDTIME MIHIR Administration PFSH Acute 2 PFSH: Medical History Pressure ulcer Sleep apnea HTN (hypertension) Obesity Pulmonary hypertension Hypothyroidism Congestive heart failure Social History Household members: children Vitals/I&O/Wt Last Vital Signs Temp 98.0 F 01/11/24 07:50 Pulse 61 01/11/24 07:50 Resp 15 01/11/24 07:50 BP 118/65 01/11/24 07:50 Pulse Ox 98 01/11/24 07:50 O2 Del Method Nasal Cannula 01/11/24 07:50 O2 Flow Rate 2 01/10/24 19:54 01/10/24 01/11/24 01/11/24 22:59 06:59 14:59 Intake Total 1020 / 2630 590 / 3220 Output Total 850 / 850 500 / 1350 Balance 170 / 1780 90 / 1870 Weight last 48 hrs Weight 300 lb Weight 300 lb Weight 311 lb Weight 311 lb Weight 299 lb 3.2 oz Weight 300 lb Physical Exam 2 Narrative: General : Patient is well developed, obese, no acute distress, oriented x3 Head : Normal cephalic, a-traumatic. Ears : Pinnae and external canal are normal. Hearing is normal. Eyes : PERRLA, Sclera and injection are normal. No conjunctival discharge. Nose : Mucous membranes are without erythema. Throat : buccal mucosa is normal, gums are without significant recession or hypertrophy. Lungs : Equal chest rise bilaterally, no use of accessory muscles, trachea is midline. Cor : Rate and rhythm are normal. Abdomen : Soft, ND, NT, no g/r/m Skin: There are erythematous discoid skin lesions ranging from 5 mm to 2.5 cm in diameter across her entire body. These are slightly raised and have bulla. There is also a continuous erythematous raised rash underneath her breasts bilaterally, extending onto her anterior abdominal wall and in her bilateral groins Extremities : No edema, no cyanosis or clubbing, dorsalis pedis pulses are present bilaterally, non-tender to palpation of calves. Upper extremities are normal bilaterally. Back : non-tender to palpation, no CVA tenderness. Neuro : CN II - XII intact, Upper and lower extremities have equal and full strength Urinary Catheter Management: Ayon: Cath Placed During This Visit: yes Reason for Continuing Indwelling Catheter: Accurate Measurement of Urinary Output in Critically Ill Patients Urinary Catheter Date of Insertion: 01/09/24 Urinary Catheter Time of Insertion: 21:13 Data 01/11/24 05:22 01/10/24 12:12 Micro: Microbiology 01/09/24 22:15 Blood Culture - Preliminary Blood NEGATIVE TO DATE 01/09/24 22:20 Blood Culture - Preliminary Blood NEGATIVE TO DATE 01/09/24 20:33 Bacterial Antigens - Final Urine Kidney 01/09/24 20:33 Legionella Urinary Antigen - Final Unknown Source A&P Assessment and plan (1) Rash: Plan 4 mm punch biopsies were taken from the right anterior abdominal wall, continuous erythematous rash, and right leg, bullous discoid lesion The risks and benefits of the procedure, including but limited to, bleeding, infection, scar, numbness, pain, or explained to the patient. She is understand the risks and wished to proceed. Biopsy specimens were labeled, placed in formalin and sent to pathology. Coding Level of Care Code 45452 Diagnoses Rash R21
--- NOTE | 2024-01-11 08:14 | PM.OP ---
Operative Report Date of procedure: January 11, 2024 Pre-op diagnosis: Skin rash anterior abdominal wall Bullous discoid skin lesions Post-op diagnosis: same Procedure done: 4 mm punch biopsy of anterior abdominal wall 4 mm punch biopsy right leg Implants: None Specimens removed/disposition: 4 mm punch biopsy of anterior abdominal wall 4 mm punch biopsy right leg Surgeon: Rodolfo Vences DO Anesthesia: Local Estimated blood loss (mL): 2 Complications: None apparent Brief History: This is a very pleasant 63-year-old female who presented to the hospital with the above skin lesions. Biopsy was indicated. The risk and benefits were explained and documented. Procedure: After informed consent was obtained, the right anterior abdominal wall and right leg were inspected prepped and draped in usual sterile fashion. 2% lidocaine was used to anesthetize the areas of concern. A 4 mm punch biopsy was used to take a full-thickness punch biopsy of the right anterior abdominal wall. The subcutaneous tissue was transected with a 15 blade scalpel. Sterile bandage was applied and the specimen was sent off to pathology. Attention was then brought to the right leg. After localizing with 2% lidocaine, a 4 mm full-thickness punch biopsy was performed. The subcutaneous fat was transected with a 15 blade scalpel. Specimen was sent off in formalin to pathology. Sterile bandages applied. Patient tolerated procedure well.
[2024-01-11] MEDS: aspirin 81 mg EC Tablet PO (09:09)
[2024-01-11] MEDS: cyanocobalamin 1,000 mcg Tablet 1000 MCG PO (09:09)
[2024-01-11] MEDS: metOLazone 5 MG Tablet PO (09:10)
[2024-01-11] MEDS: pregabalin 75 mg Capsule PO ×3 (09:10→21:03)
[2024-01-11] MEDS: BuSPIRONE 10 mg Tablet PO ×3 (09:10→21:03)
[2024-01-11] MEDS: sertraline 100 mg Tablet 200 MG PO (09:10)
[2024-01-11] MEDS: magnesium hydroxide 30 mL UDC PO (09:11)
[2024-01-11] MEDS: clotrimazole-betamethasone cream 15gm 1 APPLIC TOPICAL ×3 (09:11→21:04)
[2024-01-11] MEDS: SILDENAFIL 20 MG 20 EACH PO ×3 (09:11→21:03)
--- NOTE | 2024-01-11 09:27 | PC.SOCIAL ---
IMM Update Pg. 2 of IMM updated and reviewed with patient, who verbalized understanding. Copy provided.
--- NOTE | 2024-01-11 10:33 | P.PN_ITS ---
Subjective 2 Subjective: No acute events overnight. Patient underwent skin biopsy earlier in the morning today. Denies any nausea, ting, headache. States she feels her groin fold rash is improving. Thinks as if her overall swelling is also going down. Vitals/I&O/Wt Last Vital Signs Temp 98.0 F 01/11/24 07:50 Pulse 61 01/11/24 07:50 Resp 15 01/11/24 07:50 BP 118/65 01/11/24 07:50 Pulse Ox 98 01/11/24 07:50 O2 Del Method Nasal Cannula 01/11/24 07:50 O2 Flow Rate 2 01/11/24 08:00 01/10/24 01/11/24 01/11/24 22:59 06:59 14:59 Intake Total 1020 / 2630 590 / 3220 410 / 410 Output Total 850 / 850 500 / 1350 Balance 170 / 1780 90 / 1870 410 / 410 Weight last 48 hrs Weight 136.078 kg Weight 136.078 kg Weight 141.067 kg Weight 141.067 kg Weight 135.715 kg Weight 136.078 kg Physical Exam 2 Narrative: Accompanied by her sister. Const: COMMON NORMALS: patient oriented x3 and alert GENERAL APPEARANCE: c ooperative NUTRITIONAL APPEARANCE: obese morbidly obese O RIENTATION/CONSCIOUSNESS: Yes awake HENMT: COMMON NORMALS: oropharynx normal Neck/C-Spine: COMMON NORMALS: no JVD OTHER: Unable to visualize jugular vein due to obesity, short neck. Resp: COMMON NORMALS: normal respiratory effort and clear to auscultation bilaterally AUSCULTATION: clear to auscultation bilaterally Cardio: COMMON NORMALS: no JVD, regular rhythm, S1 normal heart sound present, S2 normal heart sound present and No murmurs present (Cardio) RHYTHM: regular rhythm HEART SOUNDS: S1 normal heart sound present and S2 normal heart sound present GI: COMMON NORMALS: Normal to inspection, nondistended, normoactive bowel sounds present, Soft to palpation and non-tender PALPATION: Yes Soft to palpation Extremity: COMMON NORMALS: no joint enlargement and no pedal edema GENERAL: Yes edema (2+) Neuro: COMMON NORMALS: patient oriented x3 and moves all extremities S ENSORIUM/ORIENTATION: Yes alert Skin: COMMON NORMALS: no rashes or lesions noted NARRATIVE SKIN EXAM: Neumiller rash of various sizes across multiple body parts, torso, including chest, back, flanks, arms, legs. No blisters. GENERAL SKIN EXAM: no rashes or lesions noted OTHER: Skin lesion under the right breast Skin lesion on right thigh Urinary Catheter Management: Ayon: Cath Placed During This Visit: yes Reason for Continuing Indwelling Catheter: Accurate Measurement of Urinary Output in Critically Ill Patients Urinary Catheter Date of Insertion: 01/09/24 Urinary Catheter Time of Insertion: 21:13 Data 01/11/24 05:22 01/11/24 05:22 Micro: Microbiology 01/09/24 22:15 Blood Culture - Preliminary Blood NEGATIVE TO DATE 01/09/24 22:20 Blood Culture - Preliminary Blood NEGATIVE TO DATE 01/09/24 20:33 Bacterial Antigens - Final Urine Kidney 01/09/24 20:33 Legionella Urinary Antigen - Final Unknown Source A&P Assessment and plan (1) Rash: Will contact surgical team for biopsy. Discussed in detail with Dr. Anat Modi/mechanic senior. She would see the patient as an outpatient. Differential diagnosis for now would be psoriasis versus autoimmune disorder like discoid lupus versus Sweet syndrome. Infective etiology less likely for now. Appreciate ESR, CRP. HIV, hepatitis panel negative. Peripheral smear, ROULA panel pending. RPR negative. If needed patient is agreeable for a trial of steroids. Appreciate surgical help for skin biopsies. (2) Intertrigo: Severe extensive intertrigo in skin folds, under breast, groin, could be in setting of fungal infection. As per dermatology team cannot rule out a form of psoriasis. Will request a biopsy as well. Possible allergic Diflucan. Patient does not remember. She is agreeable for a trial of Diflucan. Patient has tolerated Diflucan well for now. Continue Diflucan 100 mg IV for overall 7-day of antifungal treatment. Continue with clotrimazole with betamethasone ointment 3 times a day. (3) Cellulitis: Possible cellulitis at the medial left thigh region near the popliteal fossa. Mild tenderness. Check MRSA swab. Continue with IV meropenem and linezolid started overnight. (4) Failure to thrive: Failure to thrive with inability to get up and get around anymore in the last week, has been weak prior to that, but was ambulating with help from her special needs son who has autism who had been assisting her with getting up from her walker, but she cannot do that anymore since last week. Unsure of the cause. Could be in setting of mild UTI, hypokalemia on admission. Also seems to have mild subclinical hypothyroidism, low folate levels. Continue with oral folic acid twice daily. Follow-up culture results. TSH, vitamin B12 levels normal. Physical therapy. Discussed in detail with the patient for possibility of staying out of bed to chair for as long as possible. She is agreeable. Given extensive physical deconditioning patient would benefit from continued physical therapy as an outpatient at [facility]. She is agreeable. (5) Congestive heart failure: No past known medical history of congestive heart failure. Echocardiogram results shows poor echo windows with a EF of 55 to 60% without regional wall motion abnormality, grossly normal RV and RA size. Most likely congestive heart failure with preserved ejection fraction. Continue with home Trelegy. Continue with IV Lasix for now. Ayon catheterization. Plan to transition to oral diuretics within next 24 to 48 hours. Strict input output charting, daily weights. Monitor renal functions and electrolytes. For now stable creatinine BUN and bicarb levels. Qualifiers: Heart failure chronicity: acute Heart failure type: diastolic Qualified Code(s): I50.31 - Acute diastolic (congestive) heart failure (6) Urinary tract infection: Treat suspected UTI with meropenem, she has allergy to quinolones, penicillins, cephalosporins. Monitor for risk of seizure with meropenem. Follow-up urine culture. Qualifiers: Hematuria presence: without hematuria Urinary tract infection type: a cute cystitis Qualified Code(s): N30.00 - Acute cystitis without hematuria (7) Unable to ambulate: check CT head, CT thoracic lumbar spine (8) Lack of social support: Lives with a special needs 25-year-old son with autism. He is unable to help her in any substantial way beyond trying to help her to her walker at times. (9) Pressure ulcer: Sacral pressure ulcer. Wound care added. Reposition frequently. Mobilization with PT as above. Add protein supplements to diet. Plan Pulmonary hypertension: Chronically on 3 L nasal cannula oxygen. Continue with home dose of sildenafil. HTN Hypothyroidism SAVANA on trilogy at home: Continue Morbid obesity: Follow-up with primary provider for options for weight loss. Full code Cardiac diet Famotidine for PUD prophylaxis Lovenox for DVT prophylaxis Discharge plan: Plan to discharge to SNF given her severe physical deconditioning, failure to thrive, unable to ambulate for further management. Attestations 2 Medical Necessity Statement*: Requires further hospitalization for management of lower limb cellulitis, UTI, further evaluation of significant rash while psoriasis, discoid lupus is ruled out and safe discharge planning is sought in setting of severe physical deconditioning, failure to thrive and unable to ambulate Diagnoses Rash R21 Intertrigo L30.4 Cellulitis L03.90 Failure to thrive Congestive heart failure I50.31 Heart failure chronicity: acute Heart failure type: diastolic Urinary tract infection N30.00 Hematuria presence: without hematuria Urinary tract infection type: acute cystitis Unable to ambulate R26.2 Lack of social support Z65.8 Pressure ulcer L89.90
[2024-01-11] MEDS: CLONazepam 0.5 mg Tablet 0.25 MG PO (11:42)
[2024-01-11] MEDS: ezetimibe 10 mg Tablet PO (11:42)
[2024-01-11] MEDS: linezolid premix 600 MG/300 ML PREMIX 300 MG IV ×2 (11:44→23:40)
[2024-01-11 11:53] LABS: Alanine Aminotransferase 12 U/L (0-33); Albumin Level 3.4 g/dL (3.5-5.2); Alkaline Phosphatase 74 U/L (35-105); Anion Gap 14.7 (5-19); Aspartate Amino Transferase 22 U/L (0-32); Blood Urea Nitrogen 13 mg/dL (8-23); Carbon Dioxide 34 mmol/L (22-29); Chloride 92 mmol/L (98-107); Creatine Phosphokinase 28 U/L (26-192); Creatinine Clr Calc Pharmacy 71.8846; Globulin 3.9 g/dL (1.3-4.6); Glomerular Filtration Rate 50.3 mL/min (90-130); Glucose 102 mg/dL (65-115); Osmolality Calculated 284 mOsm/kg (285-295); Potassium 3.7 mmol/L (3.5-5.1); Sodium 137 mmol/L (136-145); Total Bilirubin 0.2 mg/dL (0.15-1.2); Total Protein 7.3 g/dL (6.6-8.7)
[2024-01-11 12:58] LABS: RPR w(Moniotor) w/REFL Titer NON-REACTIVE (NON-REACTIVE)
[2024-01-11] MEDS: fluconazole premix 100 MG in empty flexible container 1 EACH 50 MG IV (13:19)
--- NOTE | 2024-01-11 14:59 | CTR_ITS ---
PROCEDURE INFORMATION: Exam: CT Lumbar Spine Without Contrast Exam date and time: 01/11/2024 4:49 PM Age: 63 years old Clinical indication: Weakness; Additional info: Severe lower limb weakness TECHNIQUE: Imaging protocol: Computed tomography of the lumbar spine without contrast. Radiation optimization: All CT scans at this facility use at least one of these dose optimization techniques: automated exposure control; mA and/or kV adjustment per patient size (includes targeted exams where dose is matched to clinical indication); or iterative reconstruction. COMPARISON: CT abdomen pelvis wo con [id number] 11/01/2024 16:49 RADIATION DOSE METRICS: Total DLP (mGy-cm): 1524.6 FINDINGS: Bones/joints: There is normal anatomic alignment of the lumbosacral spine. No evidence of a lumbosacral fracture. There is multilevel chronic degenerative disc disease which is overall mild, but at L3-L4 there is moderate chronic degenerative disc disease. There is a 3-4 mm disc bulge at the L3-L4 level which is eccentric to the left. No evidence of a high-grade central canal stenosis but there appears to be moderate bilateral neural foraminal stenoses. At the L4-L5 level there is also a left neural foraminal stenosis which is moderate to severe secondary to degenerative facet hypertrophic changes and dorsal marginal osteophytes. Soft tissues: Unremarkable. CT/CT lumbar spine wo con* [id number] IMPRESSION: Multilevel chronic degenerative changes throughout the lower lumbar spine with neural foraminal stenoses as above
--- NOTE | 2024-01-11 14:59 | CTR_ITS ---
PROCEDURE INFORMATION: Exam: CT Head Without Contrast Exam date and time: 01/11/2024 4:46 PM Age: 63 years old Clinical indication: Weakness, extremity; Bilateral; Additional info: Severe lower limb weakness TECHNIQUE: Imaging protocol: Computed tomography of the head without contrast. Radiation optimization: All CT scans at this facility use at least one of these dose optimization techniques: automated exposure control; mA and/or kV adjustment per patient size (includes targeted exams where dose is matched to clinical indication); or iterative reconstruction. COMPARISON: No relevant prior studies available. RADIATION DOSE METRICS: Total DLP (mGy-cm): 1109.68 FINDINGS: Brain: No intracranial hemorrhage. There is global parenchymal volume loss. Periventricular white matter hypoattenuation is nonspecific but most likely due to small vessel disease. No evidence of acute territorial infarct or cerebral edema. No mass effect or midline shift. Cerebral ventricles: Prominent ventricles likely secondary to volume loss. Paranasal sinuses: Visualized sinuses are unremarkable. No fluid levels. Mastoid air cells: Visualized mastoid air cells are well aerated. Bones: Unremarkable. No acute fracture. Soft tissues: Unremarkable. CT/CT head wo con* [id number] IMPRESSION: No acute intracranial findings.
--- NOTE | 2024-01-11 15:00 | CTR_ITS ---
PROCEDURE INFORMATION: Exam: CT Abdomen And Pelvis Without Contrast Exam date and time: 01/11/2024 4:49 PM Age: 63 years old Clinical indication: Other: Bilateral weakness; Additional info: Severe lower limb weakness TECHNIQUE: Imaging protocol: Computed tomography of the abdomen and pelvis without contrast. Radiation optimization: All CT scans at this facility use at least one of these dose optimization techniques: automated exposure control; mA and/or kV adjustment per patient size (includes targeted exams where dose is matched to clinical indication); or iterative reconstruction. COMPARISON: CT lumbar spine wo con* [id number] 11/01/2024 16:49 RADIATION DOSE METRICS: Total DLP (mGy-cm): 1231.1 FINDINGS: Liver: The liver surface is slightly nodular. Consider early changes of hepatic cirrhosis. Gallbladder and bile ducts: Cholecystectomy Pancreas: Diffuse pancreatic atrophy Spleen: The spleen is normal in appearance. Adrenal glands: Normal. No mass. Kidneys and ureters: The kidneys are normal in appearance. No evidence of hydronephrosis or hydroureter. No nephroureteral calculi are identified. Stomach and bowel: The small bowel loops are not thickened and are nondilated. The colon is unremarkable. Mild rectosigmoid constipation Appendix: The appendix was not visualized. There are no strandy inflammatory changes surrounding the cecum Intraperitoneal space: Unremarkable. No free air. No significant fluid collection. Vasculature: Unremarkable. No abdominal aortic aneurysm. Lymph nodes: Unremarkable. No enlarged lymph nodes. Urinary bladder: The urinary bladder is decompressed with a Ayon catheter. Reproductive: Unremarkable as visualized. Bones/joints: Unremarkable. No acute fracture. Soft tissues: Unremarkable. CT/CT abdomen pelvis wo con [id number] IMPRESSION: 1. Mild rectosigmoid constipation 2. Subtle liver capsule nodularity. Consider early changes of hepatic cirrhosis
[2024-01-11] MEDS: trazodone 100 mg Tablet PO (21:03)
[2024-01-11] MEDS: CLONazepam 1 mg Tablet 0.5 MG PO (21:03)
[2024-01-11] MEDS: enoxaparin 40 mg/0.4 mL Syringe SUBCUT (23:40)
[2024-01-12 04:00] VITALS: BP 123/75; PULSE 55; RESP 19; TEMP 36.4; O2SAT 97
[2024-01-12] MEDS: FUROsemide 10 mg/mL SDV 4mL 40 MG IVP (04:47)
[2024-01-12] MEDS: levothyroxine 200 mcg Tablet PO (04:47)
[2024-01-12 06:38] LABS: Basophils % 0.4 %; Eosinophils # 0.1 10^3/uL (0.0-0.8); Eosinophils % 1.4 %; Hematocrit 38.3 % (36-47); Lymphocytes # 0.9 10^3/uL (0.8-4.8); Lymphocytes % 18.5 %; Mean Corpuscular HGB Conc 31.6 g/dL (30-55); Mean Corpuscular Hemoglobin 30.6 pg (27-33); Mean Corpuscular Volume 96.7 fl (85-98); Mean Platelet Volume 9.9 fL (7.4-10.4); Monocytes # 0.5 10^3/uL (0.2-0.9); Monocytes % 9.9 %; Neutrophils # 3.49 10^3/uL (1.8-7.7); Neutrophils % 69.4 %; Nucleated Red Blood Cells % 0 %; Platelet Count 222 10^3/cmm (157-399); Red Blood Count 3.96 10^6/uL (3.85-5.65); Red Cell Distribution Width 14.6 % (12.1-15.1); White Blood Count 5.03 10^3/uL (3.29-11.43)
[2024-01-12 07:01] LABS: Alanine Aminotransferase 10 U/L (0-33); Albumin Level 3.4 g/dL (3.5-5.2); Alkaline Phosphatase 75 U/L (35-105); Anion Gap 10.6 (5-19); Aspartate Amino Transferase 21 U/L (0-32); Blood Urea Nitrogen 16 mg/dL (8-23); Calcium 8.9 mg/dL (8.5-10.5); Chloride 91 mmol/L (98-107); Globulin 3.8 g/dL (1.3-4.6); Glomerular Filtration Rate 56.2 mL/min (90-130); Glucose 107 mg/dL (65-115); Osmolality Calculated 290 mOsm/kg (285-295); Potassium 3.6 mmol/L (3.5-5.1); Sodium 139 mmol/L (136-145); Total Bilirubin 0.2 mg/dL (0.15-1.2); Total Protein 7.2 g/dL (6.6-8.7)
[2024-01-12 07:14] LABS: Carbon Dioxide 41 mmol/L (22-29); Creatinine Clr Calc Pharmacy 80.3762
[2024-01-12 07:54] VITALS: BP 116/59; PULSE 51; RESP 17; TEMP 36.7; O2SAT 94
[2024-01-12] MEDS: cyanocobalamin 1,000 mcg Tablet 1000 MCG PO (08:41)
[2024-01-12] MEDS: metOLazone 5 MG Tablet PO (08:41)
[2024-01-12] MEDS: pregabalin 75 mg Capsule PO ×3 (08:41→21:42)
[2024-01-12] MEDS: ezetimibe 10 mg Tablet PO (08:41)
[2024-01-12] MEDS: sertraline 100 mg Tablet 200 MG PO (08:42)
[2024-01-12] MEDS: BuSPIRONE 10 mg Tablet PO ×3 (08:42→21:42)
[2024-01-12] MEDS: aspirin 81 mg EC Tablet PO (08:42)
[2024-01-12] MEDS: magnesium hydroxide 30 mL UDC PO (08:42)
[2024-01-12] MEDS: meropenem 500 MG in sodium chloride 0.9% (plus) 50 ML 100 MG IV ×3 (08:42→22:35)
[2024-01-12] MEDS: SILDENAFIL 20 MG 20 EACH PO ×3 (08:42→21:42)
[2024-01-12 11:22] VITALS: BP 122/74; PULSE 70; RESP 16; TEMP 36.7; O2SAT 100
[2024-01-12] MEDS: fluconazole premix 100 MG in empty flexible container 1 EACH 50 MG IV (12:05)
[2024-01-12] MEDS: linezolid premix 600 MG/300 ML PREMIX 300 MG IV ×2 (12:05→23:08)
[2024-01-12] MEDS: artificial tears Op Soln 15 mL Btl 1 DROP EYE-BOTH (12:06)
[2024-01-12] MEDS: CLONazepam 0.5 mg Tablet 0.25 MG PO (12:06)
--- NOTE | 2024-01-12 13:39 | P.PN_ITS ---
Subjective 2 Subjective: Patient seen and examined. She denies any pain but she did have prolonged bleeding from the right lower extremity skin biopsy site. Vitals/I&O/Wt Last Vital Signs Temp 97.6 F 01/13/24 11:19 Pulse 62 01/13/24 11:19 Resp 18 01/13/24 11:19 BP 139/68 01/13/24 11:19 Pulse Ox 97 01/13/24 11:19 O2 Del Method Nasal Cannula 01/13/24 11:19 O2 Flow Rate 2 01/13/24 08:00 01/12/24 01/13/24 01/13/24 22:59 06:59 14:59 Intake Total 350 / 1200 350 / 1550 760 / 760 Output Total 2000 / 3200 400 / 3600 700 / 700 Balance -1650 / -2000 -50 / -2049 60 / 60 Weight last 48 hrs Weight 307 lb 6.4 oz Weight 307 lb 12.8 oz Physical Exam 2 Narrative: General: No acute distress, awake alert and oriented x 3 Skin: There continues to be a continuous rash underneath both breasts and in the groin along with a whole-body bullous discoid rash. Bandages changed. Hemostasis noted on the abdomen but there is continued slow oozing of blood from the right lower extremity wound Urinary Catheter Management: Ayon: Cath Placed During This Visit: yes Reason for Continuing Indwelling Catheter: Other Urinary Catheter Date of Insertion: 01/09/24 Urinary Catheter Time of Insertion: 21:13 Data 01/13/24 06:23 01/13/24 06:23 Micro: Microbiology 01/09/24 20:23 Urine Culture - Final Urine,Clean Catch Escherichia coli A&P Assessment and plan (1) Rash: Plan 4 mm punch biopsies were taken from the right anterior abdominal wall, continuous erythematous rash, and right leg, bullous discoid lesion Biopsy specimens were labeled, placed in formalin and sent to pathology. Daily dressing changes with dry gauze or Band-Aid Await pathology results Medical management per hospitalist General surgery will sign off. Please reconsult if the need arises Attestations 2 Medical Necessity Statement*: Per primary Coding Level of Care Code 78300 Diagnoses Rash R21
--- NOTE | 2024-01-12 13:49 | P.PN_ITS ---
Subjective 2 Subjective: No acute events overnight. Seen with sister at bedside. Patient sitting up in chair. As per the sister and patient she ambulated in the room today. She denies any nausea, vomiting, headache. States feeling a lot better. Has remained hemodynamically stable and afebrile. States the rash is stable to improving. Vitals/I&O/Wt Last Vital Signs Temp 98.1 F 01/12/24 11:22 Pulse 70 01/12/24 11:22 Resp 16 01/12/24 11:22 BP 122/74 01/12/24 11:22 Pulse Ox 100 01/12/24 11:22 O2 Del Method Nasal Cannula 01/12/24 11:22 O2 Flow Rate 2 01/12/24 11:22 01/11/24 01/12/24 01/12/24 22:59 06:59 14:59 Intake Total 330 / 1330 350 / 1680 850 / 850 Output Total 800 / 800 825 / 1625 1200 / 1200 Balance -470 / 530 -475 / 55 -350 / -350 Weight last 48 hrs Weight 139.616 kg Weight 136.078 kg Weight 136.078 kg Physical Exam 2 Narrative: Accompanied by her sister. Const: COMMON NORMALS: patient oriented x3 and alert GENERAL APPEARANCE: c ooperative NUTRITIONAL APPEARANCE: obese morbidly obese O RIENTATION/CONSCIOUSNESS: Yes awake HENMT: COMMON NORMALS: oropharynx normal Neck/C-Spine: COMMON NORMALS: no JVD OTHER: Unable to visualize jugular vein due to obesity, short neck. Resp: COMMON NORMALS: normal respiratory effort and clear to auscultation bilaterally AUSCULTATION: clear to auscultation bilaterally Cardio: COMMON NORMALS: no JVD, regular rhythm, S1 normal heart sound present, S2 normal heart sound present and No murmurs present (Cardio) RHYTHM: regular rhythm HEART SOUNDS: S1 normal heart sound present and S2 normal heart sound present GI: COMMON NORMALS: Normal to inspection, nondistended, normoactive bowel sounds present, Soft to palpation and non-tender PALPATION: Yes Soft to palpation Extremity: COMMON NORMALS: no joint enlargement and no pedal edema GENERAL: Yes edema (2+) Neuro: COMMON NORMALS: patient oriented x3 and moves all extremities S ENSORIUM/ORIENTATION: Yes alert Skin: COMMON NORMALS: no rashes or lesions noted NARRATIVE SKIN EXAM: Neumiller rash of various sizes across multiple body parts, torso, including chest, back, flanks, arms, legs. No blisters. GENERAL SKIN EXAM: no rashes or lesions noted OTHER: Skin lesion under the right breast Skin lesion on right thigh Urinary Catheter Management: Ayon: Cath Placed During This Visit: yes Reason for Continuing Indwelling Catheter: Other Urinary Catheter Date of Insertion: 01/09/24 Urinary Catheter Time of Insertion: 21:13 Data 01/12/24 05:55 01/12/24 05:55 Micro: Microbiology 01/09/24 20:23 Urine Culture - Preliminary Urine,Clean Catch Gram Negative Rods A&P Assessment and plan (1) Rash: Will contact surgical team for biopsy. Discussed in detail with Dr. Anat Modi/invoice checker. She would see the patient as an outpatient. Differential diagnosis for now would be psoriasis versus autoimmune disorder like discoid lupus versus Sweet syndrome. Infective etiology less likely for now. Appreciate ESR, CRP. HIV, hepatitis panel negative. Peripheral smear, ROULA panel pending. RPR negative. If needed patient is agreeable for a trial of steroids. Appreciate surgical help for skin biopsies. (2) Intertrigo: Severe extensive intertrigo in skin folds, under breast, groin, could be in setting of fungal infection. As per dermatology team cannot rule out a form of psoriasis. Will request a biopsy as well. Possible allergic Diflucan. Patient does not remember. She is agreeable for a trial of Diflucan. Patient has tolerated Diflucan well for now. Continue Diflucan 100 mg IV for overall 7-day of antifungal treatment. Continue with clotrimazole with betamethasone ointment 3 times a day. (3) Cellulitis: Possible cellulitis at the medial left thigh region near the popliteal fossa. Mild tenderness. Check MRSA swab. Continue with IV meropenem and linezolid started overnight. (4) Failure to thrive: Failure to thrive with inability to get up and get around anymore in the last week, has been weak prior to that, but was ambulating with help from her special needs son who has autism who had been assisting her with getting up from her walker, but she cannot do that anymore since last week. Unsure of the cause. Could be in setting of mild UTI, hypokalemia on admission. Also seems to have mild subclinical hypothyroidism, low folate levels. Continue with oral folic acid twice daily. Follow-up culture results. TSH, vitamin B12 levels normal. Physical therapy. Discussed in detail with the patient for possibility of staying out of bed to chair for as long as possible. She is agreeable. Given extensive physical deconditioning patient would benefit from continued physical therapy as an outpatient at [facility]. She is agreeable. (5) Congestive heart failure: No past known medical history of congestive heart failure. Echocardiogram results shows poor echo windows with a EF of 55 to 60% without regional wall motion abnormality, grossly normal RV and RA size. Most likely congestive heart failure with preserved ejection fraction. Continue with home Trelegy. Continue with IV Lasix for now. Ayon catheterization. Plan to transition to oral diuretics within next 24 to 48 hours. Strict input output charting, daily weights. Monitor renal functions and electrolytes. For now stable creatinine BUN and bicarb levels. Qualifiers: Heart failure chronicity: acute Heart failure type: diastolic Qualified Code(s): I50.31 - Acute diastolic (congestive) heart failure (6) Urinary tract infection: Treat suspected UTI with meropenem, she has allergy to quinolones, penicillins, cephalosporins. Monitor for risk of seizure with meropenem. Follow-up urine culture. Qualifiers: Hematuria presence: without hematuria Urinary tract infection type: a cute cystitis Qualified Code(s): N30.00 - Acute cystitis without hematuria (7) Unable to ambulate: check CT head, CT thoracic lumbar spine (8) Lack of social support: Lives with a special needs 25-year-old son with autism. He is unable to help her in any substantial way beyond trying to help her to her walker at times. (9) Pressure ulcer: Sacral pressure ulcer. Wound care added. Reposition frequently. Mobilization with PT as above. Add protein supplements to diet. Plan Pulmonary hypertension: Chronically on 3 L nasal cannula oxygen. Continue with home dose of sildenafil. HTN Hypothyroidism SAVANA on trilogy at home: Continue Morbid obesity: Follow-up with primary provider for options for weight loss. Full code Cardiac diet Famotidine for PUD prophylaxis Lovenox for DVT prophylaxis Plan for the day: Follow-up with skin biopsy. Continue with fluconazole overall 7-day course and clotrimazole ointment 3 times a day.Patient is tolerating fluconazole well. Will remove from allergy list. She is agreeable. Continue with IV linezolid and meropenem. Check MRSA swab. If negative will discontinue linezolid. Follow-up urine cultures. Cellulitis improving. Continue with physical therapy. Out of bed to chair. Stop IV diuresis today. Patient developing contraction alkalosis with bicarb up to 41. Switch to oral Lasix 40 mg twice daily. Add Diamox 500 mg oral daily. Hold home dose of Metolazone. Repeat BMP in AM. Transition to SNF once patient is approved. Discharge plan: Plan to discharge to SNF given her severe physical deconditioning, failure to thrive, unable to ambulate for further management. Attestations 2 Medical Necessity Statement*: Requires further hospitalization for further workup of significant/allover body, cellulitis and UTI, congestive heart failure with obstructive sleep apnea, severe physical deconditioning while safe discharge planning is sought Diagnoses Rash R21 Intertrigo L30.4 Cellulitis L03.90 Failure to thrive Congestive heart failure I50.31 Heart failure chronicity: acute Heart failure type: diastolic Urinary tract infection N30.00 Hematuria presence: without hematuria Urinary tract infection type: acute cystitis Unable to ambulate R26.2 Lack of social support Z65.8 Pressure ulcer L89.90
[2024-01-12 15:37] VITALS: BP 142/82; PULSE 63; RESP 16; TEMP 36.7; O2SAT 99
[2024-01-12] MEDS: acetaZOLAMIDE 250 mg Tablet 500 MG PO (16:17)
[2024-01-12] MEDS: FUROsemide 40 mg Tablet PO (16:17)
[2024-01-12] MEDS: clotrimazole-betamethasone cream 15gm 1 APPLIC TOPICAL (16:17)
[2024-01-12 20:00] VITALS: BP 112/71; PULSE 61; RESP 18; TEMP 36.4; O2SAT 97
[2024-01-12] MEDS: trazodone 100 mg Tablet PO (21:42)
[2024-01-12] MEDS: CLONazepam 1 mg Tablet 0.5 MG PO (21:42)
--- NOTE | 2024-01-12 22:30 | PC.NURSE ---
Lotrisone cream not available at this time, as there is no in house pharmacist. Unable to administer at this time.
[2024-01-12] MEDS: enoxaparin 40 mg/0.4 mL Syringe SUBCUT (23:07)
[2024-01-13] VITALS (8 sets, daily range): BP systolic 104–145; BP diastolic 59–71; PULSE 55–68; RESP 16–19; TEMP 36.3–36.5; O2SAT 95–99
[2024-01-13] MEDS: levothyroxine 200 mcg Tablet PO (04:57)
[2024-01-13 06:42] LABS: Basophils % 0.4 %; Eosinophils # 0.1 10^3/uL (0.0-0.8); Eosinophils % 1.9 %; Hematocrit 37.5 % (36-47); Lymphocytes # 1.7 10^3/uL (0.8-4.8); Lymphocytes % 24.9 %; Mean Corpuscular HGB Conc 31.2 g/dL (30-55); Mean Corpuscular Hemoglobin 30.6 pg (27-33); Mean Corpuscular Volume 98.2 fl (85-98); Mean Platelet Volume 9.6 fL (7.4-10.4); Monocytes # 0.8 10^3/uL (0.2-0.9); Monocytes % 12.1 %; Neutrophils # 4.21 10^3/uL (1.8-7.7); Neutrophils % 60.4 %; Nucleated Red Blood Cells % 0 %; Platelet Count 244 10^3/cmm (157-399); Red Blood Count 3.82 10^6/uL (3.85-5.65); Red Cell Distribution Width 14.7 % (12.1-15.1); White Blood Count 6.96 10^3/uL (3.29-11.43)
[2024-01-13 06:56] LABS: Alanine Aminotransferase 9 U/L (0-33); Albumin Level 3.4 g/dL (3.5-5.2); Alkaline Phosphatase 74 U/L (35-105); Anion Gap 14.6 (5-19); Aspartate Amino Transferase 24 U/L (0-32); Blood Urea Nitrogen 21 mg/dL (8-23); Calcium 9.1 mg/dL (8.5-10.5); Carbon Dioxide 35 mmol/L (22-29); Chloride 91 mmol/L (98-107); Globulin 3.8 g/dL (1.3-4.6); Glomerular Filtration Rate 50.3 mL/min (90-130); Glucose 95 mg/dL (65-115); Osmolality Calculated 287 mOsm/kg (285-295); Potassium 3.6 mmol/L (3.5-5.1); Sodium 137 mmol/L (136-145); Total Bilirubin 0.2 mg/dL (0.15-1.2); Total Protein 7.2 g/dL (6.6-8.7)
[2024-01-13 06:59] LABS: Creatinine Clr Calc Pharmacy 73.0084
[2024-01-13] MEDS: meropenem 500 MG in sodium chloride 0.9% (plus) 50 ML 100 MG IV ×2 (08:47→14:03)
[2024-01-13] MEDS: cyanocobalamin 1,000 mcg Tablet 1000 MCG PO (08:48)
[2024-01-13] MEDS: pregabalin 75 mg Capsule PO ×3 (08:48→20:04)
[2024-01-13] MEDS: ezetimibe 10 mg Tablet PO (08:48)
[2024-01-13] MEDS: aspirin 81 mg EC Tablet PO (08:49)
[2024-01-13] MEDS: acetaZOLAMIDE 250 mg Tablet 500 MG PO (08:49)
[2024-01-13] MEDS: clotrimazole-betamethasone cream 15gm 1 APPLIC TOPICAL ×2 (08:49→14:02)
[2024-01-13] MEDS: sertraline 100 mg Tablet 200 MG PO (08:49)
[2024-01-13] MEDS: BuSPIRONE 10 mg Tablet PO ×3 (08:49→20:04)
[2024-01-13] MEDS: magnesium hydroxide 30 mL UDC PO (08:49)
[2024-01-13] MEDS: SILDENAFIL 20 MG 20 EACH PO ×3 (08:50→20:43)
[2024-01-13] MEDS: FUROsemide 40 mg Tablet PO ×2 (08:57→15:38)
[2024-01-13] MEDS: linezolid premix 600 MG/300 ML PREMIX 300 MG IV (11:24)
[2024-01-13] MEDS: fluconazole premix 100 MG in empty flexible container 1 EACH 50 MG IV (11:24)
[2024-01-13] MEDS: CLONazepam 0.5 mg Tablet 0.25 MG PO (11:24)
--- NOTE | 2024-01-13 12:43 | PM.PN ---
Subjective Subjective: And acute vents overnight. Sitting up in chair on examination with sister at bedside. Patient sleeping. Denies any nausea, vomiting, headache. Patient continues to work with physical therapy. Remains on baseline oxygen supplementation. Vitals/I&O/Wt Last Vital Signs Temp 97.6 F 01/13/24 11:19 Pulse 62 01/13/24 11:19 Resp 18 01/13/24 11:19 BP 139/68 01/13/24 11:19 Pulse Ox 97 01/13/24 11:19 O2 Del Method Nasal Cannula 01/13/24 11:19 O2 Flow Rate 2 01/13/24 08:00 01/12/24 01/13/24 01/13/24 22:59 06:59 14:59 Intake Total 350 / 1200 350 / 1550 460 / 460 Output Total 2000 / 3200 400 / 3600 700 / 700 Balance -1650 / -2000 -50 / -2050 -240 / -240 Weight last 48 hrs Weight 139.434 kg Weight 139.616 kg Physical Exam Narrative: Accompanied by her sister. Const: COMMON NORMALS: patient oriented x3 and alert GENERAL APPEARANCE: cooperative NUTRITIONAL APPEARANCE: obese morbidly obese ORIENTATION/CONSCIOUSNESS: Yes awake HENMT: COMMON NORMALS: oropharynx normal Neck/C-Spine: COMMON NORMALS: no JVD OTHER: Unable to visualize jugular vein due to obesity, short neck. Resp: COMMON NORMALS: normal respiratory effort and clear to auscultation bilaterally AUSCULTATION: clear to auscultation bilaterally Cardio: COMMON NORMALS: no JVD, regular rhythm, S1 normal heart sound present, S2 normal heart sound present and No murmurs present (Cardio) RHYTHM: regular rhythm HEART SOUNDS: S1 normal heart sound present and S2 normal heart sound present GI: COMMON NORMALS: Normal to inspection, nondistended, normoactive bowel sounds present, Soft to palpation and non-tender PALPATION: Yes Soft to palpation Extremity: COMMON NORMALS: no joint enlargement and no pedal edema GENERAL: Yes edema (2+) Neuro: COMMON NORMALS: patient oriented x3 and moves all extremities SENSORIUM/ORIENTATION: Yes alert Skin: COMMON NORMALS: no rashes or lesions noted NARRATIVE SKIN EXAM: Neumiller rash of various sizes across multiple body parts, torso, including chest, back, flanks, arms, legs. No blisters. GENERAL SKIN EXAM: no rashes or lesions noted OTHER: Skin lesion under the right breast Skin lesion on right thigh Urinary Catheter Management: Ayon: Cath Placed During This Visit: yes Reason for Continuing Indwelling Catheter: Other Urinary Catheter Date of Insertion: 01/09/24 Urinary Catheter Time of Insertion: 21:13 Data 01/13/24 06:23 01/13/24 06:23 Micro: Microbiology 01/09/24 20:23 Urine Culture - Final Urine,Clean Catch Escherichia coli A&P Assessment and plan (1) Rash: Will contact surgical team for biopsy. Discussed in detail with Dr. Anat Modi/greenhouse instructor. She would see the patient as an outpatient. Differential diagnosis for now would be psoriasis versus autoimmune disorder like discoid lupus versus Sweet syndrome. Infective etiology less likely for now. Appreciate ESR, CRP. HIV, hepatitis panel negative. Peripheral smear, ROULA panel pending. RPR negative. If needed patient is agreeable for a trial of steroids. Appreciate surgical help for skin biopsies. (2) Intertrigo: Severe extensive intertrigo in skin folds, under breast, groin, could be in setting of fungal infection. As per dermatology team cannot rule out a form of psoriasis. Will request a biopsy as well. Possible allergic Diflucan. Patient does not remember. She is agreeable for a trial of Diflucan. Patient has tolerated Diflucan well for now. Continue Diflucan 100 mg IV for overall 7-day of antifungal treatment. Continue with clotrimazole with betamethasone ointment 3 times a day. (3) Cellulitis: Possible cellulitis at the medial left thigh region near the popliteal fossa. Mild tenderness. Check MRSA swab. Continue with IV meropenem and linezolid started overnight. (4) Failure to thrive: Failure to thrive with inability to get up and get around anymore in the last week, has been weak prior to that, but was ambulating with help from her special needs son who has autism who had been assisting her with getting up from her walker, but she cannot do that anymore since last week. Unsure of the cause. Could be in setting of mild UTI, hypokalemia on admission. Also seems to have mild subclinical hypothyroidism, low folate levels. Continue with oral folic acid twice daily. Follow-up culture results. TSH, vitamin B12 levels normal. Physical therapy. Discussed in detail with the patient for possibility of staying out of bed to chair for as long as possible. She is agreeable. Given extensive physical deconditioning patient would benefit from continued physical therapy as an outpatient at [facility]. She is agreeable. (5) Congestive heart failure: No past known medical history of congestive heart failure. Echocardiogram results shows poor echo windows with a EF of 55 to 60% without regional wall motion abnormality, grossly normal RV and RA size. Most likely congestive heart failure with preserved ejection fraction. Continue with home Trelegy. Continue with IV Lasix for now. Ayon catheterization. Plan to transition to oral diuretics within next 24 to 48 hours. Strict input output charting, daily weights. Monitor renal functions and electrolytes. For now stable creatinine BUN and bicarb levels. Qualifiers: Heart failure chronicity: acute Heart failure type: diastolic Qualified Code(s): I50.31 - Acute diastolic (congestive) heart failure (6) Urinary tract infection: Treat suspected UTI with meropenem, she has allergy to quinolones, penicillins, cephalosporins. Monitor for risk of seizure with meropenem. Follow-up urine culture. Qualifiers: Hematuria presence: without hematuria Urinary tract infection type: acute cystitis Qualified Code(s): N30.00 - Acute cystitis without hematuria (7) Unable to ambulate: check CT head, CT thoracic lumbar spine (8) Lack of social support: Lives with a special needs 25-year-old son with autism. He is unable to help her in any substantial way beyond trying to help her to her walker at times. (9) Pressure ulcer: Sacral pressure ulcer. Wound care added. Reposition frequently. Mobilization with PT as above. Add protein supplements to diet. Plan Pulmonary hypertension: Chronically on 3 L nasal cannula oxygen. Continue with home dose of sildenafil. HTN Hypothyroidism SAVANA on trilogy at home: Continue Morbid obesity: Follow-up with primary provider for options for weight loss. Full code Cardiac diet Famotidine for PUD prophylaxis Lovenox for DVT prophylaxis Plan for the day: Rash continues to improve. Continue with current treatment with clotrimazole. Continue with fluconazole to finish a 7-day course. MRSA swab pending. For now continue with IV linezolid and meropenem. Urine culture growing pansensitive E. coli. Unfortunately patient is allergic to Levaquin and cephalosporins. Continue with meropenem to finish a 5-day course. DC Ayon catheter. Contraction alkalosis is resolved. Patient's bicarbonate back to baseline. Stop acetazolamide. Continue with oral Lasix 40 mg twice daily. Continue with physical therapy and out of bed to chair. Transition to SNF once patient is approved. Discharge plan: Plan to discharge to SNF given her severe physical deconditioning, failure to thrive, unable to ambulate for further management. Attestations Medical Necessity Statement*: Requires further hospitalization for management of UTI, mild cellulitis and the patient is admitted with diffuse rash while skin biopsy is awaited and safe discharge planning is sought in setting of failure to thrive, severe physical deconditioning in a patient who is morbidly obese with a BMI of more than 50 Diagnoses Rash R21 Intertrigo L30.4 Cellulitis L03.90 Failure to thrive Congestive heart failure I50.31 Heart failure chronicity: acute Heart failure type: diastolic Urinary tract infection N30.00 Hematuria presence: without hematuria Urinary tract infection type: acute cystitis Unable to ambulate R26.2 Lack of social support Z65.8 Pressure ulcer L89.90
[2024-01-13] MEDS: CLONazepam 1 mg Tablet 0.5 MG PO (20:04)
[2024-01-13] MEDS: clotrimazole 1% cream 30 gm 1 APPLIC TOPICAL (20:05)
[2024-01-13] MEDS: triamcinolone 0.1% cream 15 gm 1 APPLIC TOPICAL (20:46)
[2024-01-14] MEDS: enoxaparin 40 mg/0.4 mL Syringe SUBCUT ×2 (00:10→23:54)
[2024-01-14] MEDS: meropenem 500 MG in sodium chloride 0.9% (plus) 50 ML 100 MG IV ×4 (00:11→23:17)
[2024-01-14] MEDS: linezolid premix 600 MG/300 ML PREMIX 300 MG IV ×3 (00:40→23:55)
[2024-01-14 03:59] LABS: Alanine Aminotransferase 16 U/L (0-33); Albumin Level 3.5 g/dL (3.5-5.2); Alkaline Phosphatase 83 U/L (35-105); Anion Gap 11.1 (5-19); Aspartate Amino Transferase 31 U/L (0-32); Blood Urea Nitrogen 23 mg/dL (8-23); Calcium 8.8 mg/dL (8.5-10.5); Carbon Dioxide 37 mmol/L (22-29); Chloride 95 mmol/L (98-107); Creatinine Clr Calc Pharmacy 66.9243; Globulin 3.9 g/dL (1.3-4.6); Glomerular Filtration Rate 45.5 mL/min (90-130); Glucose 99 mg/dL (65-115); Osmolality Calculated 294 mOsm/kg (285-295); Potassium 3.1 mmol/L (3.5-5.1); Sodium 140 mmol/L (136-145); Total Bilirubin 0.2 mg/dL (0.15-1.2); Total Protein 7.4 g/dL (6.6-8.7)
[2024-01-14 05:08] VITALS: BP 111/70; PULSE 67; RESP 16; TEMP 37; O2SAT 98
[2024-01-14] MEDS: levothyroxine 200 mcg Tablet PO (06:03)
[2024-01-14 08:00] VITALS: BP 164/71; PULSE 60; RESP 18; TEMP 36.4; O2SAT 97
[2024-01-14] MEDS: pregabalin 75 mg Capsule PO ×3 (08:16→21:23)
[2024-01-14] MEDS: cyanocobalamin 1,000 mcg Tablet 1000 MCG PO (08:16)
[2024-01-14] MEDS: aspirin 81 mg EC Tablet PO (08:16)
[2024-01-14] MEDS: BuSPIRONE 10 mg Tablet PO ×3 (08:16→21:23)
[2024-01-14] MEDS: sertraline 100 mg Tablet 200 MG PO (08:16)
[2024-01-14] MEDS: FUROsemide 40 mg Tablet PO (08:19)
[2024-01-14] MEDS: ezetimibe 10 mg Tablet PO (08:19)
[2024-01-14] MEDS: SILDENAFIL 20 MG 20 EACH PO ×3 (08:19→21:22)
[2024-01-14] MEDS: triamcinolone 0.1% cream 15 gm 1 APPLIC TOPICAL ×2 (11:00→14:27)
[2024-01-14] MEDS: clotrimazole 1% cream 30 gm 1 APPLIC TOPICAL ×2 (11:00→14:28)
--- NOTE | 2024-01-14 11:42 | PM.PN ---
Subjective Subjective: seen today pt walked 20 feet with therapy family concerned for transporation. they do not have a big enough car to take patient and are requesting transport for when pt goes to rehab rash appearing improved. Vitals/I&O/Wt Last Vital Signs Temp 97.6 F 01/14/24 08:00 Pulse 60 01/14/24 08:00 Resp 18 01/14/24 08:00 BP 164/71 01/14/24 08:00 Pulse Ox 97 01/14/24 08:00 O2 Del Method Nasal Cannula 01/14/24 08:00 O2 Flow Rate 2 01/13/24 14:03 01/13/24 01/14/24 01/14/24 22:59 06:59 14:59 Intake Total 1080 / 1890 550 / 2440 530 / 530 Output Total 900 / 2800 250 / 3050 Balance 180 / -910 300 / -610 530 / 530 Weight last 48 hrs Weight 134.944 kg Weight 139.434 kg Physical Exam Narrative: Accompanied by her sister. Const: COMMON NORMALS: patient oriented x3 and alert GENERAL APPEARANCE: cooperative NUTRITIONAL APPEARANCE: obese morbidly obese ORIENTATION/CONSCIOUSNESS: Yes awake HENMT: COMMON NORMALS: oropharynx normal Neck/C-Spine: COMMON NORMALS: no JVD OTHER: Unable to visualize jugular vein due to obesity, short neck. Resp: COMMON NORMALS: normal respiratory effort and clear to auscultation bilaterally AUSCULTATION: clear to auscultation bilaterally Cardio: COMMON NORMALS: no JVD, regular rhythm, S1 normal heart sound present, S2 normal heart sound present and No murmurs present (Cardio) RHYTHM: regular rhythm HEART SOUNDS: S1 normal heart sound present and S2 normal heart sound present GI: COMMON NORMALS: Normal to inspection, nondistended, normoactive bowel sounds present, Soft to palpation and non-tender PALPATION: Yes Soft to palpation Extremity: COMMON NORMALS: no joint enlargement and no pedal edema GENERAL: Yes edema (1+) Neuro: COMMON NORMALS: patient oriented x3 and moves all extremities SENSORIUM/ORIENTATION: Yes alert Skin: NARRATIVE SKIN EXAM: Neumiller rash of various sizes across multiple body parts, torso, including chest, back, flanks, arms, legs. No blisters. Urinary Catheter Management: Ayon: Cath Placed During This Visit: yes, but has since been removed by the nurse Reason for Continuing Indwelling Catheter: Decision to DC Catheter Urinary Catheter Date of Insertion: 01/09/24 Urinary Catheter Time of Insertion: 21:13 Date Urinary Catheter Removed: 01/13/24 Time Urinary Catheter Discontinued: 18:00 Data 01/13/24 06:23 01/14/24 02:31 Micro: Microbiology 01/09/24 20:23 Urine Culture - Final Urine,Clean Catch Escherichia coli A&P Assessment and plan (1) Rash: Punch biopsies obtained. Discussed in detail with Dr. Anat Modi/edi programmer analyst. She would see the patient as an outpatient. Differential diagnosis for now would be psoriasis versus autoimmune disorder like discoid lupus versus Sweet syndrome. Infective etiology less likely for now. Appreciate ESR, CRP. HIV, hepatitis panel negative. Peripheral smear, ROULA panel pending. RPR negative. If needed patient is agreeable for a trial of steroids. Appreciate surgical help for skin biopsies. (2) Intertrigo: Severe extensive intertrigo in skin folds, under breast, groin, could be in setting of fungal infection. As per dermatology team cannot rule out a form of psoriasis. Will request a biopsy as well. Possible allergic Diflucan. Patient does not remember. She is agreeable for a trial of Diflucan. Patient has tolerated Diflucan well for now. Continue Diflucan 100 mg IV for overall 7-day of antifungal treatment. Continue with clotrimazole with betamethasone ointment 3 times a day. (3) Cellulitis: Possible cellulitis at the medial left thigh region near the popliteal fossa. Mild tenderness. Check MRSA swab. Continue with IV meropenem and linezolid started overnight. (4) Failure to thrive: Failure to thrive with inability to get up and get around anymore in the last week, has been weak prior to that, but was ambulating with help from her special needs son who has autism who had been assisting her with getting up from her walker, but she cannot do that anymore since last week. Unsure of the cause. Could be in setting of mild UTI, hypokalemia on admission. Also seems to have mild subclinical hypothyroidism, low folate levels. Continue with oral folic acid twice daily. Follow-up culture results. TSH, vitamin B12 levels normal. Physical therapy. Discussed in detail with the patient for possibility of staying out of bed to chair for as long as possible. She is agreeable. Given extensive physical deconditioning patient would benefit from continued physical therapy as an outpatient at [facility]. She is agreeable. (5) Congestive heart failure: No past known medical history of congestive heart failure. Echocardiogram results shows poor echo windows with a EF of 55 to 60% without regional wall motion abnormality, grossly normal RV and RA size. Most likely congestive heart failure with preserved ejection fraction. Continue with home Trelegy. Continue with IV Lasix for now. Ayon catheterization. Plan to transition to oral diuretics within next 24 to 48 hours. Strict input output charting, daily weights. Monitor renal functions and electrolytes. For now stable creatinine BUN and bicarb levels. Qualifiers: Heart failure chronicity: acute Heart failure type: diastolic Qualified Code(s): I50.31 - Acute diastolic (congestive) heart failure (6) Urinary tract infection: Treat suspected UTI with meropenem, she has allergy to quinolones, penicillins, cephalosporins. Monitor for risk of seizure with meropenem. Follow-up urine culture. Qualifiers: Hematuria presence: without hematuria Urinary tract infection type: acute cystitis Qualified Code(s): N30.00 - Acute cystitis without hematuria (7) Unable to ambulate: check CT head, CT thoracic lumbar spine (8) Lack of social support: Lives with a special needs 25-year-old son with autism. He is unable to help her in any substantial way beyond trying to help her to her walker at times. (9) Pressure ulcer: Sacral pressure ulcer. Wound care added. Reposition frequently. Mobilization with PT as above. Add protein supplements to diet. Plan Pulmonary hypertension: Chronically on 3 L nasal cannula oxygen. Continue with home dose of sildenafil. HTN Hypothyroidism SAVANA on trilogy at home: Continue Morbid obesity: Follow-up with primary provider for options for weight loss. Full code Cardiac diet Famotidine for PUD prophylaxis Lovenox for DVT prophylaxis Plan for the day: Rash continues to improve. Continue with current treatment with clotrimazole. Continue with fluconazole to finish a 7-day course. Punch biopsies obtained by juliana Appreciate consult. MRSA swab pending. For now continue with IV linezolid and meropenem. Urine culture growing pansensitive E. coli. Unfortunately patient is allergic to Levaquin and cephalosporins. Continue with meropenem to finish a 5-day course. Will switch to ertapenem at discharge. Last day antibiotics January 16. Contraction alkalosis is resolved. Patient's bicarbonate back to baseline. Stop acetazolamide. Continue with physical therapy and out of bed to chair. HANNAH: baseline cr 0.9, today 1.2. I would hold lasix today and order ns 75 cc/hr for total 750 cc. Gentle hydration. Repeat BMP in AM Transition to SNF in next 24-48 hours. 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 Discharge plan: Plan to discharge to SNF given her severe physical deconditioning, failure to thrive, unable to ambulate for further management. Attestations Medical Necessity Statement*: Requires further hospitalization for management of UTI, mild cellulitis and the patient is admitted with diffuse rash while skin biopsy is awaited and safe discharge planning is sought in setting of failure to thrive, severe physical deconditioning in a patient who is morbidly obese with a BMI of more than 50 Diagnoses Rash R21 Intertrigo L30.4 Cellulitis L03.90 Failure to thrive Congestive heart failure I50.31 Heart failure chronicity: acute Heart failure type: diastolic Urinary tract infection N30.00 Hematuria presence: without hematuria Urinary tract infection type: acute cystitis Unable to ambulate R26.2 Lack of social support Z65.8 Pressure ulcer L89.90
[2024-01-14 12:00] VITALS: BP 162/85; PULSE 64; RESP 20; TEMP 36.4; O2SAT 97
[2024-01-14] MEDS: fluconazole premix 100 MG in empty flexible container 1 EACH 50 MG IV (12:23)
[2024-01-14 13:19] LABS: Anti-Double Strand DNA AB <1 IU/mL; Jo-1 Antibody <1.0 NEG AI (<1.0 NEG); SS-B/LA IGG <1.0 NEG AI (<1.0 NEG); Scleroderma Ab(Scl-70) Ab <1.0 NEG AI (<1.0 NEG); Ss-A/Ro Igg >8.0 POS AI (<1.0 NEG)
--- NOTE | 2024-01-14 15:31 | PC.SOCIAL ---
IMM Updated Updated pt on IMM. No questions voiced. Provided pt a copy. Initialed, dated, & timed copy in chart.
[2024-01-14 16:00] VITALS: BP 151/77; PULSE 64; RESP 20; TEMP 36.4; O2SAT 99
[2024-01-14 20:00] VITALS: BP 104/64; PULSE 62; RESP 16; TEMP 37.1; O2SAT 100
[2024-01-14] MEDS: CLONazepam 1 mg Tablet 0.5 MG PO (21:23)
[2024-01-14] MEDS: trazodone 100 mg Tablet PO (21:23)
[2024-01-14] MEDS: clotrimazole-betamethasone cream 15gm 1 APPLIC TOPICAL (21:41)
[2024-01-15 00:51] VITALS: BP 103/70; PULSE 63; RESP 16; TEMP 37.1; O2SAT 97
[2024-01-15 05:11] VITALS: BP 108/64; PULSE 54; RESP 16; TEMP 37.1; O2SAT 98
[2024-01-15 06:02] LABS: Basophils % 0.7 %; Eosinophils # 0.2 10^3/uL (0.0-0.8); Eosinophils % 3.8 %; Lymphocytes # 1.8 10^3/uL (0.8-4.8); Lymphocytes % 31.6 %; Mean Corpuscular HGB Conc 32.2 g/dL (30-55); Mean Corpuscular Hemoglobin 30.6 pg (27-33); Mean Platelet Volume 9.5 fL (7.4-10.4); Monocytes # 0.8 10^3/uL (0.2-0.9); Monocytes % 13.3 %; Neutrophils # 2.89 10^3/uL (1.8-7.7); Neutrophils % 50.4 %; Nucleated Red Blood Cells % 0 %; Platelet Count 210 10^3/cmm (157-399); Red Blood Count 3.79 10^6/uL (3.85-5.65); Red Cell Distribution Width 14.5 % (12.1-15.1); White Blood Count 5.73 10^3/uL (3.29-11.43)
[2024-01-15] MEDS: levothyroxine 200 mcg Tablet PO (06:02)
[2024-01-15 06:24] LABS: Anion Gap 11.7 (5-19); Blood Urea Nitrogen 26 mg/dL (8-23); Calcium 8.9 mg/dL (8.5-10.5); Carbon Dioxide 34 mmol/L (22-29); Chloride 96 mmol/L (98-107); Glomerular Filtration Rate 50.3 mL/min (90-130); Glucose 93 mg/dL (65-115); Osmolality Calculated 290 mOsm/kg (285-295); Potassium 3.7 mmol/L (3.5-5.1); Sodium 138 mmol/L (136-145)
[2024-01-15 06:26] LABS: Creatinine Clr Calc Pharmacy 70.7264
[2024-01-15 08:00] VITALS: BP 117/73; PULSE 56; RESP 17; TEMP 36.6; O2SAT 94
[2024-01-15] MEDS: meropenem 500 MG in sodium chloride 0.9% (plus) 50 ML 100 MG IV (08:59)
[2024-01-15 09:00] VITALS: PULSE 56; O2SAT 94
[2024-01-15] MEDS: ezetimibe 10 mg Tablet PO (09:00)
[2024-01-15] MEDS: cyanocobalamin 1,000 mcg Tablet 1000 MCG PO (09:00)
[2024-01-15] MEDS: BuSPIRONE 10 mg Tablet PO (09:00)
[2024-01-15] MEDS: SILDENAFIL 20 MG 20 EACH PO (09:00)
[2024-01-15] MEDS: sertraline 100 mg Tablet 200 MG PO (09:00)
[2024-01-15] MEDS: pregabalin 75 mg Capsule PO (09:00)
[2024-01-15] MEDS: aspirin 81 mg EC Tablet PO (09:00)
[2024-01-15] MEDS: clotrimazole-betamethasone cream 15gm 1 APPLIC TOPICAL (09:01)
--- NOTE | 2024-01-15 09:08 | P.DS_ITS ---
Discharge Providers Date of Admission: 01/09/24 22:25 Date of Discharge: January 15, 2024 Attending Provider at Admission: Raymond Srivastava Attending Provider at Discharge: Liyah Mondragon MD Primary Care Provider: Mamadou Johnson MD Diagnoses at Discharge Discharge Diagnosis (1) Rash: Status: Acute (2) Intertrigo: Status: Acute (3) Cellulitis: Status: Acute (4) Failure to thrive: Status: Acute (5) Congestive heart failure: Status: Acute Qualifiers: Heart failure chronicity: acute Heart failure type: diastolic Qualified Code(s): I50.31 - Acute diastolic (congestive) heart failure (6) Urinary tract infection: Status: Acute Qualifiers: Hematuria presence: without hematuria Urinary tract infection type: acu te cystitis Qualified Code(s): N30.00 - Acute cystitis without hematuria (7) Unable to ambulate: Status: Acute (8) Lack of social support: Status: Acute (9) Pressure ulcer: Status: Acute Reason for Visit Reason for Visit: leg pain Hospital Course Hospital Course 61-year-old female who presented to the hospital with failure to thrive and extensive rash on her body. Does have a history of Sjogren's syndrome with strong family history of SLE. Her rash was discussed with party bus driver outpatient and there was a concern of Sweet syndrome versus discoid lupus versus psoriasis versus possible infected rash due to disseminated fungal infection on admission but highly unlikely. Skin biopsy was performed by general surgery during hospitalization and patient is to follow-up with dermatology as an outpatient after discharge. Patient does have a history of sleep apnea pulmonary hypertension for which she takes sildenafil. On admission she was diagnosed with exacerbation of congestive heart failure. She has been aggressively diuresed and is 9 L negative at time of discharge and has been transition back to her oral diuretics. Patient has been treated with clotrimazole ointment and fluconazole. She is to complete fluconazole total 7 days. Additionally for mild cellulitis of left thigh and under breast area including a UTI she was placed on linezolid and meropenem. She will be completing 7 days each of both of those as well. Patient will be sent to [facility] at this time. Patient has been given appropriate follow-up with dermatology outpatient and follow-up with primary care doctor. All questions answered. Sister at bedside in agreement with the above plan. Physical Exam Narrative: Accompanied by her sister. Const: COMMON NORMALS: patient oriented x3 and alert GENERAL APPEARANCE: cooperative NUTRITIONAL APPEARANCE: obese morbidly obese ORIENTA TION/CONSCIOUSNESS: Yes awake HENMT: COMMON NORMALS: oropharynx normal Neck/C-Spine: COMMON NORMALS: no JVD OTHER: Unable to visualize jugular vein due to obesity, short neck. Resp: COMMON NORMALS: normal respiratory effort and clear to auscultation bilaterally AUSCULTATION: clear to auscultation bilaterally Cardio: COMMON NORMALS: no JVD, regular rhythm, S1 normal heart sound present, S2 normal heart sound present and No murmurs present (Cardio) RHYTHM: regular rhythm HEART SOUNDS: S1 normal heart sound present and S2 normal heart sound present GI: COMMON NORMALS: Normal to inspection, nondistended, normoactive bowel sounds present, Soft to palpation and non-tender PALPATION: Yes Soft to palpation Extremity: COMMON NORMALS: no joint enlargement and no pedal edema GENERAL: Yes edema (1+) Neuro: COMMON NORMALS: patient oriented x3 and moves all extremities SENSORIUM/ORIENTATION: Yes alert Skin: NARRATIVE SKIN EXAM: Neumiller rash of various sizes across multiple body parts, torso, including chest, back, flanks, arms, legs. No blisters with significant improvement Rash under breast area is also improved. Urinary Catheter Management: Ayon: Cath Placed During This Visit: yes, but has since been removed by the nurse Reason for Continuing Indwelling Catheter: Decision to DC Catheter Urinary Catheter Date of Insertion: 01/09/24 Urinary Catheter Time of Insertion: 21:13 Date Urinary Catheter Removed: 01/13/24 Time Urinary Catheter Discontinued: 18:00 Discharge Data Studies Completed and Pending Completed Studies During Hospitalization Category Date Time Status CT abdomen pelvis wo con [id number] Routine Cat Scan 01/11/24 15:[address] head wo con* [id number] Routine Cat Scan 01/11/24 14:[address] lumbar spine wo con* [id number] Routine Cat Scan 01/11/24 14:59 Completed XR chest 1V portable [id number] Stat Exams 01/09/24 19:45 Completed CV. echo complete* [id number] Routine Ultrasound 01/10/24 11:24 Completed US venous duplex lower extremity bilat [CV venous Ultrasound 01/09/24 19:46 [place] [id number]] Stat Pending at discharge Category Date Time Status MRSA [Methicillin Resistant S.aureu] Routine Lab 01/13/24 10:58 Ordered [facility] ROULA Profile Routine Lab 01/10/24 05:22 Results Pathology: Surgical [PTH] Routine Pth 01/11/24 08:26 Received Radiology Impressions Chest X-Ray 01/09/24 19:45 IMPRESSION: 1. Pulmonary venous hypertension without edema. 2. Left lower lobe infiltrate. Venous Duplex 01/09/24 19:46 IMPRESSION: No evidence of deep vein thrombosis. Head CT 01/11/24 14:59 IMPRESSION: No acute intracranial findings. Lumbar Spine CT 01/11/24 14:59 IMPRESSION: Multilevel chronic degenerative changes throughout the lower lumbar spine with neural foraminal stenoses as above Abdomen/Pelvis CT 01/11/24 15:00 IMPRESSION: 1. Mild rectosigmoid constipation 2. Subtle liver capsule nodularity. Consider early changes of hepatic cirrhosis Laboratory Results WBC 5.73 10^3/uL (3.29-11.43) 01/15/24 05:55 RBC 3.79 10^6/uL (3.85-5.65) L 01/15/24 05:55 Hgb 11.60 g/dL (11.27-16.99) 01/15/24 05:55 Hct 36.0 % (36-47) 01/15/24 05:55 MCV 95.0 fl (85-98) 01/15/24 05:55 MCH 30.6 pg (27-33) 01/15/24 05:55 MCHC 32.2 g/dL (30-55) 01/15/24 05:55 RDW 14.5 % (12.1-15.1) 01/15/24 05:55 Plt Count 210 10^3/cmm (157-399) 01/15/24 05:55 MPV 9.5 fL (7.4-10.4) 01/15/24 05:55 Neut % (Auto) 50.4 % 01/15/24 05:55 Lymph % (Auto) 31.6 % 01/15/24 05:55 [place] % (Auto) 13.3 % 01/15/24 05:55 Eos % (Auto) 3.8 % 01/15/24 05:55 Baso % (Auto) 0.7 % 01/15/24 05:55 Neut # (Auto) 2.89 10^3/uL (1.8-7.7) 01/15/24 05:55 Lymph # (Auto) 1.8 10^3/uL (0.8-4.8) 01/15/24 05:55 [place] # (Auto) 0.8 10^3/uL (0.2-0.9) 01/15/24 05:55 Eos # (Auto) 0.2 10^3/uL (0.0-0.8) 01/15/24 05:55 Baso # (Auto) 0.0 10^3/uL (0.0-0.1) 01/15/24 05:55 Nucleated RBC % (auto) 0 % 01/15/24 05:55 Nucleated RBCs # 0.0 /100WBC 01/15/24 05:55 Peripher Smr Path Cons Sent for review 01/10/24 12:12 ESR 78 mm/hr (0-15) H 01/10/24 12:12 D-Dimer 0.76 ug/mLFEU (0-0.59) H 01/10/24 12:12 Sodium 138 mmol/L (136-145) 01/15/24 05:55 Potassium 3.7 mmol/L (3.5-5.1) 01/15/24 05:55 Chloride 96 mmol/L (98-107) L 01/15/24 05:55 Carbon Dioxide 34 mmol/L (22-29) H 01/15/24 05:55 Anion Gap 11.7 (5-19) 01/15/24 05:55 BUN 26 mg/dL (8-23) H 01/15/24 05:55 Creatinine 1.1 mg/dL (0.5-0.9) H 01/15/24 05:55 GFR Calculation 50.3 mL/min (90-130) L 01/15/24 05:55 Glucose 93 mg/dL (65-115) 01/15/24 05:55 Estimat Average Glucose 105 01/10/24 12:12 Hemoglobin A1c 5.3 % (4.0-6.0) 01/10/24 12:12 Calculated Osmolality 290 mOsm/kg (285-295) 01/15/24 05:55 Lactic Acid 0.9 mmol/L (0.5-2.2) 01/09/24 22:15 Calcium 8.9 mg/dL (8.5-10.5) 01/15/24 05:55 Phosphorus 3.3 mg/dL (2.5-4.5) 01/11/24 05:22 Magnesium 2.3 mg/dL (1.7-2.3) 01/11/24 05:22 Iron 53 ug/dL (37-145) 01/10/24 12:12 TIBC 301 mcg/dl 01/10/24 12:12 % Saturation 17.6 % (20-50) L 01/10/24 12:12 Unsat Iron Binding 248 ug/dL (112-347) 01/10/24 12:12 Total Bilirubin 0.2 mg/dL (0.15-1.2) 01/14/24 02:31 AST 31 U/L (0-32) 01/14/24 02:31 ALT 16 U/L (0-33) 01/14/24 02:31 Alkaline Phosphatase 83 U/L (35-105) 01/14/24 02:31 Creatine Kinase 28 U/L (26-192) 01/11/24 05:22 Troponin T Baseline 69 ng/L (0-10) H 01/09/24 19:55 Troponin T 120 Minute 66.93 ng/L (0-10) H 01/09/24 21:32 Delta Troponin T -2.07 ABS# (0-10) L 01/09/24 21:32 Troponin T Hi Sens 6Hr 68.30 ng/L (0-10) H 01/10/24 01:41 Troponin T Hi Sens 6Hr Delta -0.70 ng/L (0-12) L 01/10/24 01:41 C-Reactive Protein 16.0 mg/L (0.0-4.9) H 01/10/24 12:12 NT-Pro-B Natriuret Pep 297 pg/mL (0-125) H 01/09/24 19:55 Total Protein 7.4 g/dL (6.6-8.7) 01/14/24 02:31 Albumin 3.5 g/dL (3.5-5.2) 01/14/24 02:31 Globulin 3.9 g/dL (1.3-4.6) 01/14/24 02:31 Triglycerides 120 mg/dL (0-150) 01/11/24 05:22 Cholesterol 225 mg/dL (0-200) H 01/11/24 05:22 LDL Cholesterol, Calc 144 mg/dL (50-129) H 01/11/24 05:22 Total VLDL Cholesterol 24 mg/dL (0-30) 01/11/24 05:22 HDL Cholesterol 57 mg/dL (60-100) L 01/11/24 05:22 Cholesterol/HDL Ratio 3.95 mg/dL (0.0-4.40) 01/11/24 05:22 Vitamin B12 1929 pg/mL (232-1245) H 01/10/24 12:12 Folate 3.1 ng/mL (4.8-37.3) L 01/11/24 05:22 Procalcitonin 0.08 ng/mL (0-0.5) 01/10/24 12:12 TSH 5.60 uIU/mL (0.27-4.20) H 01/10/24 12:12 Free T4 1.51 ng/dL (0.82-1.77) 01/10/24 12:12 Free T3 1.5 PG/ML (2.0-4.4) L 01/10/24 12:12 Urine Color Yellow (Yellow) 01/09/24 20:23 Urine Appearance Cloudy (CLEAR) A 01/09/24 20:23 Urine pH 6.5 (5-7) 01/09/24 20:23 Ur Specific [place] 1.010 (1.005-1.030) 01/09/24 20:23 Urine Protein Neg (Negative) 01/09/24 20:23 Urine Glucose (UA) Norm (Normal) 01/09/24 20:23 Urine Ketones Negative (Negative) 01/09/24 20:23 Urine Blood 2+ (Negative) H 01/09/24 20:23 Urine Nitrate Positive (Negative) H 01/09/24 20:23 Urine Bilirubin Neg (Negative) 01/09/24 20:23 Urine Urobilinogen Neg mg/dL (Negative) 01/09/24 20:23 Ur Leukocyte Esterase 2+ (Negative) H 01/09/24 20:23 Urine RBC 5-10 /hpf (0-2) H 01/09/24 20:23 Urine WBC 25-40 /hpf (0-5) H 01/09/24 20:23 Ur Squamous Epith Cells 25-40 /hpf (0-5) H 01/09/24 20:23 Amorphous Sediment 1+ /hpf 01/09/24 20:23 Urine Bacteria 3+ /hpf (NONE) H 01/09/24 20:23 Urine Mucus 2+ /hpf 01/09/24 20:23 Urine Opiates Screen Positive ng/mL (Negative) H 01/09/24 20:33 Ur Barbiturates Screen Negative ng/mL (Negative) 01/09/24 20:33 Ur Phencyclidine Scrn Negative ng/mL (Negative) 01/09/24 20:33 Ur Amphetamines Screen Negative ng/mL (Negative) 01/09/24 20:33 U Benzodiazepines Scrn Negative ng/mL (Negative) 01/09/24 20:33 Urine Cocaine Screen Negative ng/mL (Negative) 01/09/24 20:33 U Marijuana (THC) Screen Negative ng/mL (Negative) 01/09/24 20:33 JOLLY-1 Antibody <1.0 neg AI (<1.0 NEG) 01/10/24 05:22 SS-A/Ro IgG Antibody >8.0 pos AI (<1.0 NEG) A 01/10/24 05:22 SS-B/La IgG Antibody <1.0 neg AI (<1.0 NEG) 01/10/24 05:22 Scl-70 Scleroderma Ab <1.0 neg AI (<1.0 NEG) 01/10/24 05:22 Anti-ds DNA IgG Ab <1 IU/mL 01/10/24 05:22 RPR w/Rflx to Titer Non-reactive (NON-REACTIVE) 01/10/24 12:12 Hepatitis A IgM Ab Non-reactive (Nonreactive) 01/10/24 12:12 Hep Bs Antigen Non-reactive (Nonreactive) 01/10/24 12:12 Hep Bs Antibody < 3.5 (11.5-1000) L 01/10/24 12:12 Hep B Core Total Ab Non-reactive (Nonreactive) 01/10/24 12:12 Hepatitis C Antibody Non-reactive (Nonreactive) 01/10/24 12:12 HIV 1&2 Ab & HIV 1 Ag Non-reactive (Non-Reactiv) 01/10/24 12:12 HIV 1&2 Antibody Non-reactive (Non-Reactiv) 01/10/24 12:12 Vitals Last Vital Signs Temp 97.8 F 01/15/24 08:00 Pulse 56 L 01/15/24 09:00 Resp 17 01/15/24 08:00 BP 117/73 01/15/24 08:00 Pulse Ox 94 01/15/24 09:00 O2 Del Method Nasal Cannula 01/15/24 09:00 O2 Flow Rate 2 01/15/24 09:00 Discharge Plan Discharge Patient Disposition: Xfer SNF Condition: Stable Prescriptions: New linezolid 600 mg tablet 600 mg PO BID Qty: 6 0RF fluconazole 200 mg tablet 200 mg PO DAILY Qty: 3 0RF Continued furosemide 40 mg Tablet 40 mg PO BID clonazepam 0.5 mg Tablet 0.25 mg PO QNOON clonazepam 1 mg Tablet 0.5 mg PO BEDTIME Vitamin B-12 1,000 mcg Tablet 1,000 mcg PO DAILY trazodone 100 mg Tablet 100 mg PO BEDTIME buspirone 10 mg Tablet 10 mg PO TID diphenhydramine HCl 25 mg Tablet 25 mg PO TID PRN (Reason: Itching) levothyroxine 200 mcg Tablet 200 mcg PO QAM Vitamin D2 1,250 mcg (50,000 unit) Capsule See Rx Instructions .ROUTE .COMPLEX Rx Instructions: 1,250 mcg orally, On Fridays pregabalin 75 mg Capsule 75 mg PO TID aspirin 81 mg Capsule 81 mg PO DAILY sertraline 200 mg Capsule 200 mg PO DAILY [place] 3 2100 2,100 mg PO BID sildenafil (pulm.hypertension) 20 mg Tablet 20 mg PO TID Rx Instructions: administer doses at least 4-6 hours apart Held furosemide 40 mg Tablet See Rx Instructions .ROUTE .COMPLEX Hold Instructions: see pcp Rx Instructions: 40 mg orally - Sunday, , Sunday at 1400. nabumetone 750 mg Tablet 750 mg PO BID Hold Instructions: see pcp metolazone 5 mg Tablet 5 mg PO QMWF Hold Instructions: see pcp nystatin 100,000 unit/gram Cream 1 applic TOPICAL DAILY Hold Instructions: see pcp Discontinued amlodipine 2.5 mg Tablet 2.5 mg PO QMWF terbinafine HCl 250 mg Tablet 250 mg PO DAILY Rx Instructions: take for 4 weeks, filled 01/08/24 Discharge Orders: Discharge Order (Routine); Ordered 01/15/24 Ordered By: Liyah Mondragon Referrals: [facility] [Other] [facility] [Outside] (You have an appointment at [facility] on 01/14/2024 @ 8:20am, please arrive 30 minutes early for new patient paper work, if this day and time does not work for you call them @ [phone] to reschedule.) Mamadou Johnson MD [Primary Care Provider] - 1-3 days Discharge Diet: Cardiac Discharge Activity: Increase activity as tolerated and As per PT/OT instructions Patient Instructions: Opioid Safety Activity Restrictions/Additional Instructions: Ertapenem 1g IV daily x 3 more days. Please see party bus driver as soon as possible. Discharge Attestations Time Spent in Discharge Care*: greater than 30 min Quality Metrics Clinical Quality Measures [ No reported AMI, CVA or VTE this stay] Coding Level of Care Code Acute Code for Chg Fwd Diagnoses Rash R21 Intertrigo L30.4 Cellulitis L03.90 Failure to thrive Congestive heart failure I50.31 Heart failure chronicity: acute Heart failure type: diastolic Urinary tract infection N30.00 Hematuria presence: without hematuria Urinary tract infection type: acute cystitis Unable to ambulate R26.2 Lack of social support Z65.8 Pressure ulcer L89.90
--- NOTE | 2024-01-15 10:20 | PC.NURSE ---
Patient refused milk of magnesium today as well as yesterday stating she has had multiple bowel movements. No diarrhea at this time. Patient had two bowel movements yesterday. Patient questioned the fluids that were ordered yesterday and asked why the doctor was giving the fluids after taking off fluid. This nurse looked up labs and told the patient that it was probably the creatinine. The patient asked what is that? Explained that it is the lab that monitors the kidney function. Patient said she still didn't understanding of why they were giving fluids when they wanted to take it off. I stated again that it was because we pulled a lot off so far and she was a little dry. She wanted to hold off on the fluids. Charted patient refused.
[2024-01-15 12:00] VITALS: BP 158/80; PULSE 68; RESP 17; TEMP 36.7; O2SAT 93
[2024-01-15] MEDS: fluconazole premix 100 MG in empty flexible container 1 EACH 50 MG IV (12:35)
[2024-01-15] MEDS: linezolid premix 600 MG/300 ML PREMIX 300 MG IV (12:36)
--- NOTE | 2024-01-15 15:08 | PC.NURSE ---
Called report to facility and educated patient that the IV will stay in for the nursing facility to administer IV antibiotics for three more days.
[2024-01-15 15:20] VITALS: BP 158/80; PULSE 68; RESP 17; TEMP 36.7; O2SAT 93
== END 2024-01-15 15:22 | disposition skilled nursing facility (03) | DRG 606 ==
LOC: ER 22:15 → MEDSURG 22:25
PROVIDERS: Student in an Organized Health Care Education/Training Program; Admitting Provider Internal Medicine; Emergency Provider Emergency Medicine; Family Provider Family Medicine; PCP Family Medicine Geriatric Medicine; Visit Provider Internal Medicine
DX: R21 Rash and other nonspecific skin eruption (principal); I50.33 Acute on chronic diastolic (congestive) heart failure; Z68.43 Body mass index [BMI] 50.0-59.9, adult; J96.11 Chronic respiratory failure with hypoxia; N30.00 Acute cystitis without hematuria; L03.116 Cellulitis of left lower limb; E66.01 Morbid (severe) obesity due to excess calories; Z99.81 Dependence on supplemental oxygen; I27.20 Pulmonary hypertension, unspecified; I11.0 Hypertensive heart disease with heart failure; G47.33 Obstructive sleep apnea (adult) (pediatric); R62.7 Adult failure to thrive; J44.9 Chronic obstructive pulmonary disease, unspecified; E03.8 Other specified hypothyroidism; E87.6 Hypokalemia; L89.159 Pressure ulcer of sacral region, unspecified stage; N61.0 Mastitis without abscess; L30.4 Erythema intertrigo; M35.00 Sjogren syndrome, unspecified; B37.2 Candidiasis of skin and nail
CPT/HCPCS: 36415; 51702; 70450; 71045; 72131; 74176; 80048; 80053; 80061; 80306; 80503; 81001; 82550; 82607; 82746; 83036; 83540; 83550; 83605; 83735; 83880; 84100; 84145; 84439; 84443; 84481; 84484; 85025; 85378; 85651; 86140; 86225; 86235; 86403; 86592; 86705; 86706; 86709; 86803; 87040; 87077; 87086; 87186; 87340; 87449; 87806; 88305; 88313; 93005; 93306; 93970; 96365; 96367; 96372; 96375; 97110; 97116; 97161; 97167; 97530; 97535; 99285; J1450; J1650; J1940; J2020; J2185; J2248; Q9956

== ENCOUNTER → 2024-02-19 13:49 | Outpatient (BNVA) | payer MEDICARE, MEDICAID, SELFPAY | PROVIDERS: Family Provider Family Medicine; PCP Family Medicine Geriatric Medicine; Visit Provider Dermatology | DX: L40.0 Psoriasis vulgaris (principal); L40.8 Other psoriasis | CPT/HCPCS: 99204 ==

== ENCOUNTER → 2024-06-04 13:57 | Outpatient (BNVA) | payer MEDICARE, MEDICAID, SELFPAY | PROVIDERS: Family Provider Family Medicine; PCP Family Medicine Geriatric Medicine; Visit Provider Nurse Practitioner Family | DX: L40.0 Psoriasis vulgaris (principal); L40.8 Other psoriasis; I87.2 Venous insufficiency (chronic) (peripheral) | CPT/HCPCS: 99214 ==

== ENCOUNTER → 2024-09-12 09:40 | Outpatient (BNVA) | payer MEDICARE, MEDICAID, SELFPAY | PROVIDERS: Family Provider Family Medicine; PCP Family Medicine Geriatric Medicine; Visit Provider Nurse Practitioner Family | DX: L40.0 Psoriasis vulgaris (principal); L40.8 Other psoriasis; L81.4 Other melanin hyperpigmentation | CPT/HCPCS: 99214 ==